=== PATIENT | female | born 1990 | race Caucasian/White ===

== ENCOUNTER 2018-01-16 17:22 | Observation (INO) | payer OTHER, BC, SELFPAY ==
[2018-01-16 17:30] VITALS: BP 133/86; PULSE 59; RESP 18; TEMP 36.8; O2SAT 95; BMI 21.2
--- NOTE | 2018-01-16 18:30 | DI.US.S_ITS ---
PROCEDURE: US PELVIC COMPLETE INDICATIONS: RIGHT LOWER QUADRANT PAIN TECHNIQUE: Real-time scanning was performed of the pelvic organs, with image documentation. Additional endovaginal scanning was necessary due to incomplete visualization of the adnexal and endometrial structures by transabdominal scanning. COMPARISON: None. FINDINGS: Transabdominal scanning: Limited scanning through the kidneys shows no hydronephrosis. No pathologic free abdominal or pelvic fluid. Endovaginal scanning: Uterus: Uterus is normal in size at 6.8 x 3.0 x 4.4 cm. The endometrium measures 4-5 mm in combined thickness. Ovaries: Right ovary measures 2.2 x 1.1 x 1.0 cm. Left ovary measures 3.2 x 1.0 x 1.1 cm. Ovaries are unremarkable, normal waveform seen with Doppler interrogation of the left ovary, however Doppler interrogation of the right ovary was unsuccessful due to adjacent peristalsing bowel The appendix is not seen. IMPRESSION: Overall, grossly unremarkable examination as above. The appendix is not seen sonographically therefore please correlate clinically and with laboratory data. Dictated by: Troy Haas M.D. on 01/16/2018 at 20:11 Approved by: Troy Haas M.D. on 01/16/2018 at 20:13
[2018-01-16] MEDS: SODIUM CHLORIDE 0.9% 1,000 ML 1000 ML IV ×2 (19:03→22:02)
[2018-01-16] MEDS: HYDROMORPHONE 1 MG INJ 0.5 MG IV (19:03)
[2018-01-16] MEDS: ONDANSETRON 4 MG/2 ML INJ IV (19:04)
[2018-01-16 19:08] LABS: Add Manual Diff / Slide Review NO; Basophils Percent Auto 0.4 % (0-2); Eosinophils Percent Auto 1.8 % (2-4); Hematocrit 38.2 % (36-46); Mean Corpuscular Hemoglobin 28.6 PG (26-34); Mean Corpuscular Volume 84.1 fL (80-100); Monocytes Percent Auto 9.6 % (3-14); Neutrophils Absolute Auto 3800 /uL (3000-5900); Neutrophils Percent Auto 59.2 % (50-75); Platelet Count 230 X10^3/uL (150-400); Red Blood Cell Count 4.54 X10^6/uL (4.0-5.2); Red Cell Distribution Width 12.8 % (11.6-14.8); White Blood Cell Count 6.5 X10^3/uL (4.5-11.0)
[2018-01-16 19:18] LABS: Alanine Aminotransferase 21 IU/L (9-52); Albumin 4.2 g/dL (3.5-5.0); Albumin Globulin Ratio 1.5 (1.0-2.8); Alkaline Phosphatase 55 U/L (38-126); Aspartate Aminotransferase 18 IU/L (14-36); BUN Creatinine Ratio 8.3 (6-22); Bilirubin Total 0.2 mg/dL (0.2-1.3); Blood Urea Nitrogen 5 mg/dL (7-17); Carbon Dioxide 24 mmol/L (22-32); Chloride 104 mmol/L (98-107); Estimated Glomerular Filt Rate > 60.0 mL/min (>60); Globulin 2.8 g/dL (1.7-4.1); Glucose 84 mg/dL (70-100); HEMOLYSIS < 15 (0-50); Lipase 52 U/L (23-300); Potassium 3.6 mmol/L (3.4-5.1); Sodium 142 mmol/L (137-145)
--- NOTE | 2018-01-16 19:45 | DI.CT.S_ITS ---
PROCEDURE: CT ABDOMEN PELVIS W CON INDICATIONS: severe RLQ pain, normal US TECHNIQUE: After the administration of intravenous contrast, 5 mm thick sections acquired from the diaphragm to the symphysis. 5 mm coronal and sagittal reformats were acquired. For radiation dose reduction, the following was used: automated exposure control, adjustment of mA and/or kV according to patient size. COMPARISON: None. FINDINGS: Image quality: Excellent. ABDOMEN: Lung bases: Lung bases are clear. Heart size is normal. Solid organs: Liver is normal in size and enhancement. Gallbladder grossly unremarkable. Biliary system is non dilated. Pancreas enhances normally. Spleen is normal in size and enhancement. No adrenal nodules. Kidneys demonstrate normal size and enhancement, without hydronephrosis. Peritoneum and bowel: The appendix is not well-visualized although probably normal in diameter coronal image 13 series 3, however there is long segment cecal and ascending colonic wall thickening in keeping with nonspecific colitis. There is adjacent fat stranding and enlarged right lower quadrant lymph nodes. No abscess. No free fluid or air. Nodes and vessels: No retroperitoneal or mesenteric adenopathy by size criteria. Aorta and inferior vena cava are normal in size. Miscellaneous: No ventral hernias. PELVIS: Genitourinary: Bladder wall thickness is normal. Miscellaneous: No inguinal hernias or adenopathy. Bones: No suspicious bony lesions. No vertebral body compression fractures. IMPRESSION: Severe ascending/right colitis, statistically infectious or inflammatory in nature. Appendix not well-visualized. The distribution of colonic wall thickening and inflammation suggest primary colitis rather than reactive changes to occult appendicitis. Please correlate clinically and with laboratory data. Dictated by: Troy Haas M.D. on 01/16/2018 at 20:19 Approved by: Troy Haas M.D. on 01/16/2018 at 20:29
[2018-01-16] MEDS: HYDROMORPHONE 1 MG INJ IV (20:07)
[2018-01-16 20:18] VITALS: BP 113/68; PULSE 81; RESP 14; O2SAT 97
[2018-01-16 21:00] VITALS: BP 143/90
[2018-01-16] MEDS: ONDANSETRON 4 MG ODT PREPACK 1 BOTTLE MISC (21:04)
[2018-01-16] MEDS: METOCLOPRAMIDE 10 MG/2 ML INJ IV (21:49)
[2018-01-16 22:00] VITALS: BP 154/100; PULSE 93; RESP 14; O2SAT 96
[2018-01-16 22:30] VITALS: BP 119/86
[2018-01-16] MEDS: levoFLOXacin 500 MG/100 ML PIGGYBACK 100 MG IV (22:36)
--- NOTE | 2018-01-16 22:47 | PC.NURSE ---
while trying to give oral antibiotics patient felt nausea and vomited several times. patient not able to take oral antibiotics and took one of her zofran odt from [facility]. zofran did not help and patient continued to vomit/dry heave. patient given reglan 10mg and has had 2 episodes of vomiting and dry heaving. provider aware.
[2018-01-16 23:57] VITALS: BP 95/59; PULSE 69; RESP 16; O2SAT 100
[2018-01-17] VITALS: BP 101/68; PULSE 75; RESP 16; TEMP 36.9; O2SAT 99
[2018-01-17 00:14] VITALS: BMI 21.2
[2018-01-17 00:49] VITALS: BP 143/73; PULSE 84; RESP 16; TEMP 36.8; O2SAT 98
[2018-01-17 02:12] VITALS: BP 98/52; PULSE 60; RESP 16; TEMP 36.7; O2SAT 97
--- NOTE | 2018-01-17 02:25 | ED_ITS ---
HPI - Abdominal Pain General Chief Complaint: Abdominal Pain Stated Complaint: STABBING PAIN IN STOMACH Time Seen by Provider: 01/16/18 18:00 Source: patient and family Mode of arrival: ambulatory Limitations: no limitations History of Present Illness HPI narrative: 27-year-old nonsmoking female, otherwise healthy, presents to the emergency department with her significant other and a chief complaint of a few days of worsening right lower quadrant pain along with nausea, vomiting and diarrhea. She states her pain started off and was generally located around her umbilicus but has since settled in the right lower quadrant. Her pain is worse with motion and improves with rest. She denies fever or chills. She recently returned from [place]. She denies any recent antibiotic use. She has had decreased appetite. She denies any vaginal bleeding or discharge MD complaint: abdominal pain Onset (ago): day(s) Pain Consistency: constant Location: RLQ Context: foreign travel Associated symptoms: nausea, vomiting and diarrhea Related Data Home Medications Medication Instructions Recorded Confirmed norgestimate-ethinyl estradiol 01/17/18 [Estarylla] Previous Rx's Medication Instructions Recorded ondansetron [Zofran ODT] 4 mg SUBLINGUAL Q6HP PRN #20 odt 07/30/16 ondansetron [Zofran ODT] 4 mg PO Q6-8H PRN #14 tab 01/16/18 Allergies Allergy/AdvReac Type Severity Reaction Status Date / Time Penicillins [PENICILLINS] Allergy Severe Swelling Verified 01/16/18 17:35 of Lip/Tongue/Throat Review of Systems Review of Systems All systems reviewed & are unremarkable except as noted in HPI and below Constitutional Denies chills, Denies fever(s), Denies lethargy and Denies weakness Eyes Denies change in vision, Denies eye discharge, Denies irritation and Denies loss of vision ENT Ears, Nose, Mouth, and Throat: Denies change in voice, Denies neck pain and Denies sore throat Cardiovascular Denies chest pain, Denies irregular heart rhythm, Denies lightheadedness, Denies palpitations, Denies dyspnea, Denies dyspnea on exertion and Denies orthopnea Respiratory Denies cough, Denies dyspnea, Denies dyspnea on exertion and Denies wheezing Gastrointestinal Gastrointestinal: Reports abdominal pain, Denies change in bowel habits, Reports diarrhea, Reports nausea and Denies vomiting Genitourinary Denies hematuria, Denies flank pain, Denies urinary incontinence and Denies urinary urgency Musculoskeletal Denies neck pain Integumentary/Breasts Denies pruritus, Denies erythema, Denies rash and Denies wounds Neurologic Denies confusion, Denies loss of vision and Denies weakness Psychiatric Denies anxiety, Denies confusion, Denies depression, Denies homicidal ideation and Denies suicidal ideation Endocrine Denies palpitations Hematologic/Lymphatic Denies easy bruising Allergic/Immunologic Denies wheezing [facility] Social History household members: significant other Smoking Status: Never smoker Exam Narrative Exam Narrative: GENERAL: This is a well-nourished, well-developed patient, in mild distress. Clutching her lower abdomen HEAD: Atraumatic. Normocephalic. No temporal or scalp tenderness. EYES: Pupils equal round and reactive. Extraocular motions intact. No scleral icterus. No injection or drainage. ENT: Nose without bleeding, purulent drainage or septal hematoma. Throat without erythema, tonsillar hypertrophy or exudate. Uvula midline. Airway patent. NECK: Trachea midline. No JVD or lymphadenopathy. Supple, nontender, no meningeal signs. CARDIOVASCULAR: Regular rate and rhythm without murmurs, gallops, or rubs. RESPIRATORY: Clear to auscultation. Breath sounds equal bilaterally. No wheezes , rales, or rhonchi. GASTROINTESTINAL: Abdomen soft, tender in the right lower quadrant, nondistended. No hepato-splenomegaly, or palpable masses. No guarding. No obturator, psoas or Rovsing's EXTREMITIES: No clubbing, cyanosis, or edema. No joint tenderness, effusion, or edema noted. BACK: Nontender without deformity or crepitance. No flank tenderness. NEURO: AOx3. SKIN: No rash or erythema. Initial Vital Signs Initial Vital Signs: Vital Signs Temperature 98.2 F 01/16/18 17:30 Pulse Rate 59 L 01/16/18 17:30 Respiratory Rate 18 01/16/18 17:30 Blood Pressure 133/86 01/16/18 17:30 Pulse Oximetry 95 01/16/18 17:30 Course Orders Ordered: ED Orders 01/16/18 18:30 US pelvic complete Stat GI Panel Stat 01/16/18 18:55 Complete Blood Count AUTO DIFF Stat Comprehensive Metabolic Panel Stat Lipase Stat 01/16/18 19:45 CT abdomen pelvis w con Stat 01/17/18 06:00 Basic Metabolic Panel Routine Complete Blood Count AUTO DIFF Routine Magnesium Routine Acetaminophen (Tylenol) 650 mg PO Q6HR PRN PRN Reason: As Needed for Fever/Mild Pain Enoxaparin Sodium (Lovenox) 40 mg SUBCUT DAILY NANI Dextrose/Sodium Chloride (Dextrose 5%-0.45% Ns) 1,000 mls @ 75 mls/hr IV CONT NANI Discontinued Medications Hydrocodone Bitart/Acetaminophen (Vicodin Prepack) 1 bottle MISC SEEINSTR ONE Stop: 01/16/18 20:34 Last Admin: 01/16/18 23:00 Dose: Hydromorphone HCl (Dilaudid) 0.5 mg IV NOW ONE Stop: 01/16/18 18:30 Last Admin: 01/16/18 19:03 Dose: 0.5 mg Hydromorphone HCl (Dilaudid) 1 mg IV NOW ONE Stop: 01/16/18 19:45 Last Admin: 01/16/18 20:07 Dose: 1 mg Sodium Chloride (Normal Saline 0.9%) 1,000 mls @ 1,000 mls/hr IV BOLUS ONE Stop: 01/16/18 19:28 Last Infusion: 01/16/18 20:46 Dose: 0 mls/hr Admin: 01/16/18 19:03 Dose: 1,000 mls/hr Sodium Chloride (Normal Saline 0.9%) 1,000 mls @ 1,000 mls/hr IV BOLUS ONE Stop: 01/16/18 23:00 Last Infusion: 01/17/18 00:00 Dose: 0 mls/hr Admin: 01/16/18 22:02 Dose: 1,000 mls/hr Levofloxacin (Levaquin) 500 mg in 100 mls @ 100 mls/hr IV NOW ONE Stop: 01/16/18 23:26 Last Infusion: 01/16/18 23:55 Dose: 0 mls/hr Admin: 01/16/18 22:36 Dose: 100 mls/hr Levofloxacin (Levaquin) 500 mg PO NOW ONE Stop: 01/16/18 20:34 Last Admin: 01/16/18 23:02 Dose: Metoclopramide HCl (Reglan) 10 mg IV NOW ONE Stop: 01/16/18 21:49 Last Admin: 01/16/18 21:49 Dose: 10 mg Metronidazole (Metronidazole) 500 mg PO NOW ONE Stop: 01/16/18 20:34 Last Admin: 01/16/18 23:03 Dose: Ondansetron HCl (Zofran) 4 mg IV NOW ONE Stop: 01/16/18 18:30 Last Admin: 01/16/18 19:04 Dose: 4 mg Ondansetron HCl (Zofran Odt Prepack) 1 bottle MISC SEEINSTR ONE Stop: 01/16/18 20:34 Last Admin: 01/16/18 21:04 Dose: 1 bottle Reevaluation(s) Reevaluation #1: Patient continues to vomit despite multiple doses antiemetics including Zofran and Reglan. Consultations Consultation #1: hospitalist happy to accept patient Vital Signs - 8 hr 01/16/18 20:18 01/16/18 21:00 01/16/18 22:00 Temperature Pulse Rate 81 93 H Respiratory Rate 14 14 Blood Pressure Blood Pressure [Right Arm] 113/68 143/90 H 154/100 H Pulse Oximetry 97 96 01/16/18 22:30 01/16/18 23:57 01/17/18 00:00 Temperature 98.4 F Pulse Rate 69 75 Respiratory Rate 16 16 Blood Pressure Blood Pressure [Right Arm] 119/86 95/59 L 101/68 Pulse Oximetry 100 99 01/17/18 00:49 Temperature 98.2 F Pulse Rate 84 Respiratory Rate 16 Blood Pressure 143/73 H Blood Pressure [Right Arm] Pulse Oximetry 98 MDM - Abdominal Pain Differential Diagnosis Differential diagnosis: Likely abdominal pain, acute appendicitis, calculus of kidney, diverticulitis and small bowel obstruction Medical Records Attestation: I reviewed the patient's medical records. Lab Data Attestation: I reviewed the patient's lab results. Result diagrams: 01/16/18 18:55 01/16/18 18:55 Lab Results 01/16/18 01/16/18 Range/Units 18:55 18:55 WBC 6.5 (4.5-11.0) X10^3/uL RBC 4.54 (4.0-5.2) X10^6/uL Hgb 13.0 (12.0-16.0) g/dL Hct 38.2 (36-46) % MCV 84.1 (80-100) fL MCH 28.6 (26-34) PG MCHC 34.0 (30-36) % RDW 12.8 (11.6-14.8) % Plt Count 230 (150-400) X10^3/uL Neut % (Auto) 59.2 (50-75) % Lymph % (Auto) 29.0 (25-40) % [place] % (Auto) 9.6 (3-14) % Eos % (Auto) 1.8 L (2-4) % Baso % (Auto) 0.4 (0-2) % Neut # (Auto) 3800 (7847-3132) /uL Sodium 142 (137-145) mmol/L Potassium 3.6 (3.4-5.1) mmol/L Chloride 104 (98-107) mmol/L Carbon Dioxide 24 (22-32) mmol/L BUN 5 L (7-17) mg/dL Creatinine 0.60 (0.52-1.04) mg/dL Estimated GFR > 60.0 (>60) mL/min BUN/Creatinine Ratio 8.3 (6-22) Glucose 84 (70-100) mg/dL Calcium 9.0 (8.4-10.2) mg/dL Total Bilirubin 0.2 (0.2-1.3) mg/dL AST 18 (14-36) IU/L ALT 21 (9-52) IU/L Alkaline Phosphatase 55 (38-126) U/L Total Protein 7.0 (6.3-8.2) g/dL Albumin 4.2 (3.5-5.0) g/dL Globulin 2.8 (1.7-4.1) g/dL Albumin/Globulin Ratio 1.5 (1.0-2.8) Lipase 52 (23-300) U/L Point of care testing: Point of Care Testing Test Results Negative Urine Dip Bedside Urine Glucose Negative Bedside Urine Bilirubin - Negative Bedside Urine Ketone - Negative Urine Specific [place] 1.015 Bedside Urine Occult Blood - Negative Bedside Urine pH 6.0 Bedside Urine Protein - Negative Bedside Urine Urobilinogen - Negative Bedside Urine Nitrite - Negative Bedside Urine Leukocytes - Negative Esterase Imaging Data CT scan - abdomen: Radiologist's impression: Patient: Aisha Mcgill RaLuiR#: [id number] : 1990Acct:[id number] Age/Sex: 27 / FDate of Service: 01/16/18 Loc: ED Accession Number: [id number] Procedure: CT abdomen pelvis w con Ordering Provider: Rigoberto Carney D.O. PROCEDURE: CT ABDOMEN PELVIS W CON INDICATIONS: severe RLQ pain, normal US TECHNIQUE: After the administration of intravenous contrast, 5 mm thick sections acquired from the diaphragm to the symphysis. 5 mm coronal and sagittal reformats were acquired. For radiation dose reduction, the following was used: automated exposure control, adjustment of mA and/or kV according to patient size. COMPARISON: None. FINDINGS: Image quality: Excellent. ABDOMEN: Lung bases: Lung bases are clear. Heart size is normal. Solid organs: Liver is normal in size and enhancement. Gallbladder grossly unremarkable. Biliary system is non dilated. Pancreas enhances normally. Spleen is normal in size and enhancement. No adrenal nodules. Kidneys demonstrate normal size and enhancement, without hydronephrosis. Peritoneum and bowel: The appendix is not well-visualized although probably normal in diameter coronal image 13 series 3, however there is long segment cecal and ascending colonic wall thickening in keeping with nonspecific colitis. There is adjacent fat stranding and enlarged right lower quadrant lymph nodes. No abscess. No free fluid or air. Nodes and vessels: No retroperitoneal or mesenteric adenopathy by size criteria. Aorta and inferior vena cava are normal in size. Miscellaneous: No ventral hernias. PELVIS: Genitourinary: Bladder wall thickness is normal. Miscellaneous: No inguinal hernias or adenopathy. Bones: No suspicious bony lesions. No vertebral body compression fractures. IMPRESSION: Severe ascending/right colitis, statistically infectious or inflammatory in nature. Appendix not well-visualized. The distribution of colonic wall thickening and inflammation suggest primary colitis rather than reactive changes to occult appendicitis. Please correlate clinically and with laboratory data. Dictated by: Troy Haas M.D. on 01/16/2018 at 20:19 MDM Narrative Medical decision making narrative: Otherwise healthy 27-year-old female with severe right lower quadrant pain and severe ascending colitis noted on CT. She has been given antibiotics, fluids and antiemetics. She is not tolerating anything by mouth despite multiple antiemetics and is therefore not a candidate for discharge. She will require admission for IV fluid administration, antibiotics, antiemetics. Discharge Plan Departure Patient Disposition: Admitted As Inpatient Clinical Impression: Colitis Discharge Date/Time: 01/17/18 00:34 Interventions: ED Discharge Assessment Last Done: 01/17/18 00:33 Admit Date/Time: 01/16/18 23:48 Admit Provider: Italo Jean
[2018-01-17] MEDS: metroNIDAZOLE 500 MG/100 ML PIGGYBACK 100 MG IV ×2 (02:56→09:37)
[2018-01-17] MEDS: DEXTROSE 5%-0.45% NS 1,000 ML 75 ML IV (02:57)
--- NOTE | 2018-01-17 03:06 | PC.NURSE ---
Admitted as AxOx3, VSS, very pleasant. SBP appears to increase quite high from baseline when patient is retching/ in distress. Once she settles down, her SBP is usually right under 100. Upon coming up to the floor patient started retching and dry heaving but did not throw up. She stated that her nausea/vomitting had gone away finally for a bit up until that point. Currently patient is not nauseous. She is on Clear Liquids but at this point does not have a desire to try to eat/drink. She is hooked up to continuous IVF: D5-1/2NS@75mL/hr. Awaiting Stool sample to send. Independent of ADL's. Refused SCD's, I explained to her risks for blood clots/strokes and she verbalized understanding and refused. States her only home meds she takes is control.
--- NOTE | 2018-01-17 05:33 | PM.HP.1 ---
History of Present Illness Date Patient Seen: 01/17/18 Time Patient Seen: 05:34 Chief complaint: STABBING PAIN IN STOMACH Narrative: The patient is a 27-year-old female with unremarkable past medical history. Patient presents of concern for 5 day history of abdominal pain. Abdominal discomfort localized to right lower quadrant. Associated symptoms include nausea and vomiting (started 01/16). She has been having the diarrhea for the past 4 days. Reports generalized malaise. Appetite and oral food and fluid intake has been diminished. Abdominal pain is localized to umbilical area and right lower quadrant. Does not radiate to the back, shoulder, or extremities. Pain is exacerbated with activity and partially relieved with rest. Denies fever and chills. No known GI disorders / inflammatory conditions. Denies blood per rectum. Recently traveled to [place], returned 01/14. Denies recent ABX use. Patient does not smoke or use recreational drugs. Reports mild alcohol use. Denies abdominal trauma. ED w/u consisted of a pelvic ultrasound and CT imaging pelvic ultrasound is noted as grossly unremarkable. CT of A/P revealed severe ascending right colitis, statistically infectious or inflammatory nature. Appendix not well visualized. The distribution of colonic wall thickening and inflammation suggest primary colitis rather than reactive changes to occult appendicitis. Patient History Family & Social History Family History: Reviewed 01/17/18 by HENRI Childers Social History: household members significant other Prior Living Arrangements House Safety & Behavioral: Feels Safe in Current Yes Environment Been Physically Hurt or No Threatened By a Person Suicidal Ideation Description None Suicide Plan Description No Plan Tobacco & Substance use: Smoking Status Never smoker alcohol intake frequency 0-2 drinks per day Substance Use Type does not use Meds Home Medications Medication Instructions Recorded Confirmed Type ondansetron [Zofran ODT] 4 mg SUBLINGUAL Q6HP PRN #20 odt 07/30/16 01/17/18 Rx ondansetron [Zofran ODT] 4 mg PO Q6-8H PRN #14 tab 01/16/18 01/17/18 Rx norgestimate-ethinyl estradiol 0.25 - 35 DAILY 01/17/18 History [Estarylla] Allergies Allergy/AdvReac Type Severity Reaction Status Date / Time Penicillins [PENICILLINS] Allergy Severe Swelling Verified 01/16/18 17:35 of Lip/Tongue/Throat Review of Systems Review of Systems All systems reviewed & are unremarkable except as noted in HPI and below Exam Vital Signs (past 8 hours): - 01/16/18 22:00 01/16/18 22:30 01/16/18 23:57 Temperature Pulse Rate 93 H 69 Respiratory Rate 14 16 Blood Pressure Blood Pressure [Right Arm] 154/100 H 119/86 95/59 L Pulse Oximetry 96 100 01/17/18 00:00 01/17/18 00:49 01/17/18 02:12 Temperature 98.4 F 98.2 F 98.1 F Pulse Rate 75 84 60 Respiratory Rate 16 16 16 Blood Pressure 143/73 H 98/52 L Blood Pressure [Right Arm] 101/68 Pulse Oximetry 99 98 97 Oxygen Delivery Method Room Air Narrative Exam Narrative: General appearance: NAD Head: NC / AT EENT: ELISABET, EOMI, external ears intact, external nose normal without drainage or epistaxis, dry MM Neck: No lymphadenopathy or JVD Respiratory: Equal chest rise, CTAB, no tachypnea or dyspnea, on room air Cardiovascular: S1-S2, no murmur Peripheral vascular: No edema or cyanosis, bi-pedal pulses palpable GI: soft, nondistended, tender in the right lower quadrant and mildly in right upper quadrant; hyperactive bowel sounds; no organomegaly : No suprapubic tenderness Skin: Warm, intact, no suspicious lesions or bruising Neuro: No focal neurological deficit Psych: AOx3, normal mood and affect Objective Labs Result Diagrams: 01/16/18 18:55 01/16/18 18:55 Labs: Laboratory Results - last 24 hr 01/16/18 01/16/18 18:55 18:55 WBC 6.5 RBC 4.54 Hgb 13.0 Hct 38.2 MCV 84.1 MCH 28.6 MCHC 34.0 RDW 12.8 Plt Count 230 Neut % (Auto) 59.2 Lymph % (Auto) 29.0 [place] % (Auto) 9.6 Eos % (Auto) 1.8 L Baso % (Auto) 0.4 Neut # (Auto) 3800 Sodium 142 Potassium 3.6 Chloride 104 Carbon Dioxide 24 BUN 5 L Creatinine 0.60 Estimated GFR > 60.0 BUN/Creatinine Ratio 8.3 Glucose 84 Calcium 9.0 Total Bilirubin 0.2 AST 18 ALT 21 Alkaline Phosphatase 55 Total Protein 7.0 Albumin 4.2 Globulin 2.8 Albumin/Globulin Ratio 1.5 Lipase 52 Assessment & Plan Plan: Assessment/Plan Narrative: Colitis, severe Infectious versus inflammatory. WBC within normal limits. - IV Flagyl and levofloxacin - GI panel pending - IVF - Supportive care: anti-emetics, pain control Hypovolemia 2/2 acute GI losses and poor nutritional intake - IVF Intractable nausea and vomiting - Reglan prn Diarrhea - IVF - Replete e-lyte deficiencies
[2018-01-17 06:42] LABS: Add Manual Diff / Slide Review NO; Basophils Percent Auto 0.2 % (0-2); Eosinophils Percent Auto 0.1 % (2-4); Hematocrit 33.8 % (36-46); Hemoglobin 11.5 g/dL (12.0-16.0); Lymphocytes Percent Auto 17.9 % (25-40); Mean Corpuscular HGB Conc 33.9 % (30-36); Mean Corpuscular Hemoglobin 28.7 PG (26-34); Mean Corpuscular Volume 84.5 fL (80-100); Monocytes Percent Auto 7.3 % (3-14); Neutrophils Absolute Auto 4800 /uL (3000-5900); Neutrophils Percent Auto 74.5 % (50-75); Platelet Count 203 X10^3/uL (150-400); Red Cell Distribution Width 12.6 % (11.6-14.8); White Blood Cell Count 6.5 X10^3/uL (4.5-11.0)
[2018-01-17 07:00] LABS: Blood Urea Nitrogen 3 mg/dL (7-17); Calcium 7.9 mg/dL (8.4-10.2); Carbon Dioxide 22 mmol/L (22-32); Chloride 104 mmol/L (98-107); Estimated Glomerular Filt Rate > 60.0 mL/min (>60); Glucose 106 mg/dL (70-100); HEMOLYSIS < 15 (0-50); Magnesium 1.8 mg/dL (1.6-2.3); Potassium 3.7 mmol/L (3.4-5.1); Sodium 136 mmol/L (137-145)
[2018-01-17 08:00] VITALS: BP 92/71; PULSE 62; RESP 17; TEMP 36.8; O2SAT 97
[2018-01-17] MEDS: ACETAMINOPHEN 325 MG TABLET 650 MG PO (08:27)
--- NOTE | 2018-01-17 11:15 | CM.DANOTE ---
DCP/Continued: Reviewed chart. Patient is a 27yr old female admitted to [facility] with abdominal pain. Primary payor is 1[facility]. Patient without PCP at this time. Met with patient explained CM/SW role. Patient alert and oriented resting in bed comfortably at time of visit. Patient reports that she is completely I in ADL's. Patient resides with significant other (Parish) # [phone] and plans to return home when medically stable. Patient reports that she is actively looking for PCP. Patient has a few names that were given to her by friend and plans to follow up as outpatient. Patient employed in [employer] as [employer]. Patient denies h/o abdominal pain and any d/c planning needs. P: Anticipate home when medically stable. MON[facility] Th[facility] Discharge Planning/Care Management CM Discharge Assessment Start: 01/17/18 11:14 Freq: Status: Active Protocol: Document 01/17/18 11:14 KJS (Rec: 01/17/18 11:15 [id number]) Discharge Planning Assessment Assigned Payroll Benefits Administrator MONSTER Thapa Advance Directives? No History Provided By Patient Has Patient been admitted in last 30 No days? Prior Living Arrangements House Household Members significant other Type of transporation used prior to Drives own vehicle admit Independent with ADL's Yes Is patient alert and oriented? Yes Caregiver for Another No Barriers to Discharge No Discharge Plan Home Referrals Initiated None needed Whiteboard Updated in Patient Room with Yes name and ext. # of Payroll Benefits Administrator Review Status In Process Please Provide Date Initial DC 01/17/18 Assessment Was Performed Next Review Type Continued Stay Review
[2018-01-17 11:50] VITALS: BP 92/58; PULSE 65; RESP 17; TEMP 37.2; O2SAT 97
--- NOTE | 2018-01-17 14:51 | PC.NURSE ---
Day shift: Pt left unit at approx 1500. She is with SO and ambulated to private car. Has all personal belongings. Paperwork is signed and all questions answered. Dr Hensley called in scripts.
--- NOTE | 2018-01-17 19:36 | P.DS_ITS ---
History of Present Illness Chief complaint: STABBING PAIN IN STOMACH Narrative: The patient is a 27-year-old female with unremarkable past medical history. Patient presents of concern for 5 day history of abdominal pain. Abdominal discomfort localized to right lower quadrant. Associated symptoms include nausea and vomiting (started 01/16). She has been having the diarrhea for the past 4 days. Reports generalized malaise. Appetite and oral food and fluid intake has been diminished. Abdominal pain is localized to umbilical area and right lower quadrant. Does not radiate to the back, shoulder, or extremities. Pain is exacerbated with activity and partially relieved with rest. Denies fever and chills. No known GI disorders / inflammatory conditions. Denies blood per rectum. Recently traveled to [place] , returned 01/14. Denies recent ABX use. Patient does not smoke or use recreational drugs. Reports mild alcohol use. Denies abdominal trauma. ED w/u consisted of a pelvic ultrasound and CT imaging pelvic ultrasound is noted as grossly unremarkable. CT of A/P revealed severe ascending right colitis, statistically infectious or inflammatory nature. Appendix not well visualized. The distribution of colonic wall thickening and inflammation suggest primary colitis rather than reactive changes to occult appendicitis. Discharge Providers Date of admission: 01/16/18 23:48 Discharge provider: Levi Hensley MD Discharge Date: 01/17/18 Summary Discharge Diagnosis: 1. Acute infectious colitis Hospital Course: Patient was started on IV Levaquin and Flagyl and IV hydration. She had significant improvement in abdominal pain and resolution of diarrhea and vomiting over night and feels ready to discharge. At time of discharge she is tolerating a clear liquid diet. Acute colitis most likely infectious associated with recent travel to [place]. She would like to establish care locally at [facility]. Status at Discharge Functional status at discharge: independent ambulation Overall status at discharge: patient is back to baseline Time Spent with Patient Less than 30 minutes Exam Vital Signs (past 8 hours): - 01/17/18 11:50 Temperature 99.0 F Pulse Rate 65 Respiratory Rate 17 Blood Pressure 92/58 L Pulse Oximetry 97 Oxygen Delivery Method Room Air Objective Labs Result Diagrams: 01/17/18 05:53 01/17/18 05:53 Labs: Laboratory Results - last 24 hr 01/17/18 01/17/18 05:53 05:53 WBC 6.5 RBC 4.00 Hgb 11.5 L Hct 33.8 L MCV 84.5 MCH 28.7 MCHC 33.9 RDW 12.6 Plt Count 203 Neut % (Auto) 74.5 Lymph % (Auto) 17.9 L [place] % (Auto) 7.3 Eos % (Auto) 0.1 L Baso % (Auto) 0.2 Neut # (Auto) 4800 Sodium 136 L Potassium 3.7 Chloride 104 Carbon Dioxide 22 BUN 3 L Creatinine 0.50 L Estimated GFR > 60.0 BUN/Creatinine Ratio 6.0 Glucose 106 H Calcium 7.9 L Magnesium 1.8 Discharge Plan Discharge Plan Patient Disposition: Home Discharge Med Rec/Prescriptions Prescriptions: New metronidazole 500 mg tablet 500 mg PO TID Qty: 15 RF: 0 levofloxacin 500 mg tablet 500 mg PO .hs Qty: 5 RF: 0 fluconazole 150 mg tablet 150 mg PO DAILY 1 Days Qty: 1 RF: 0 ondansetron HCl 4 mg tablet 4 mg PO TID PRN (Reason: nausea and vomiting) 5 Days Qty: 10 RF: 0 Continue norgestimate-ethinyl estradiol [Estarylla] 0.25-35 mg-mcg tablet 1 tab PO DAILY RF: 0 Follow up/Referrals: Michaela Smith PAC [Other] - 1 Week ([facility] will call patient to schedule her appointment to establish care) Provider Discharge Instructions Diet: Diet as Tolerated Visit Report/Discharge Packet Instructions: Ondansetron, Metronidazole Oral, Fluconazole, Levofloxacin, DI for Colitis Visit Report Forms: Stroke Signs & Symptoms Discharge Data Attending Provider: Italo Jean Admit Date/Time: 01/16/18 23:48 Discharges patient from system. Discharge Date/Time: 01/17/18 14:54
== END 2018-01-17 14:54 | disposition home or self-care (01) ==
LOC: ED 23:08 → AC 01-17 09:15
PROVIDERS: Admitting Provider Nurse Practitioner Gerontology; Emergency Provider Emergency Medicine; Visit Provider Nurse Practitioner Gerontology
DX: K52.9 Noninfective gastroenteritis and colitis, unspecified (principal); R10.31 Right lower quadrant pain; R11.2 Nausea with vomiting, unspecified
CPT/HCPCS: 36415; 36591; 74177; 76830; 76856; 80048; 80053; 81003; 81025; 83690; 83735; 85025; 96361; 96365; 96366; 96375; 96376; 99285; G0378; J1170; J1956; J2405; J2765; Q9967

== ENCOUNTER → 2019-10-16 09:02 | Outpatient (CLI) | payer OTHER, MEDICAID, SELFPAY ==
[2019-09-28 13:25] VITALS: BMI 21.2
--- NOTE | 2019-10-16 09:03 | DI.US.S_ITS ---
PROCEDURE: US OB <= 14 WEEKS FETUS INDICATIONS: DATES OUTSIDE/PRIOR DATING DATA: Last menstrual period (LMP): 08/19/19. LMP-based estimated date of delivery (LAUREN): 05/25/20 . First dating scan (date and location): 10/16/19 . Estimated date of delivery (LAUREN) from first dating scan: 05/25/20 . TECHNIQUE: Real-time scanning was performed of the fetus and maternal pelvic organs, with image documentation. Endovaginal scanning was also performed to better visualize the fetus and maternal ovaries. COMPARISON: None. FINDINGS: Embryo: 1.8 cm crown-rump length correlates with a gestational age of 8 weeks 2 days, +/-5 days, and heart rate at 178 beats per minute was observed. Measurement variability in dating: +/- 4 weeks by LMP, +/- 7 days by mean sac diameter (use before 6 weeks gestation if crown-rump length not able to be measured), +/- 5 days by crown-rump length (up to 8 weeks 6 days gestation), +/- 7 days by crown-rump length (up to 13 weeks 6 days gestation). Maternal organs: Ovaries appeared normal considering gestational status . Limited images through the kidneys demonstrate no hydronephrosis. IMPRESSION: Single living intrauterine gestation with estimated gestational age of 8 weeks 2 days and delivery date projected to be centered on 05/25/20, +/-5 days. Dictated by: Pedro Pablo Garrison M.D. on 10/16/2019 at 10:50 Approved by: Pedro Pablo Garrison M.D. on 10/16/2019 at 10:52
== END ==
PROVIDERS: PCP Family Medicine; Referring Provider Family Medicine; Visit Provider Family Medicine
DX: Z34.91 Encounter for supervision of normal pregnancy, unspecified, first trimester (principal); Z3A.08 8 weeks gestation of pregnancy
CPT/HCPCS: 76801; 76817

== ENCOUNTER → 2019-10-23 14:57 | Outpatient (CLI) | payer OTHER, MEDICAID, SELFPAY ==
[2019-09-28 13:25] VITALS: BMI 21.2
[2019-10-25 13:44] LABS: Urine N gonorrhoeae NOT DETECTED
[2019-10-25 13:45] LABS: Urine Chlamydia NOT DETECTED
== END ==
PROVIDERS: PCP Family Medicine; Visit Provider Family Medicine
DX: Z34.90 Encounter for supervision of normal pregnancy, unspecified, unspecified trimester (principal)
CPT/HCPCS: 87491; 87591

== ENCOUNTER → 2019-10-25 16:47 | Outpatient (CLI) | payer OTHER, MEDICAID, SELFPAY ==
[2019-09-28 13:25] VITALS: BMI 21.2
[2019-10-25 17:33] LABS: Add Manual Diff / Slide Review NO; Basophils Absolute Auto 0 /uL (0-100); Basophils Percent Auto 0.4 % (0-2); Eosinophils Absolute Auto 100 /uL (0-450); Eosinophils Percent Auto 1.1 % (2-4); Hematocrit 36.6 % (36-46); Hemoglobin 12.7 g/dL (12.0-16.0); Lymphocytes Absolute Auto 2100 /uL (1100-4500); Lymphocytes Percent Auto 27.4 % (25-40); Mean Corpuscular HGB Conc 34.7 % (30-36); Mean Corpuscular Hemoglobin 28.8 PG (26-34); Mean Corpuscular Volume 83.1 fL (80-100); Monocytes Absolute Auto 500 /uL (0-900); Neutrophils Absolute Auto 4800 /uL (1500-7000); Neutrophils Percent Auto 64.1 % (50-75); Platelet Count 212 X10^3/uL (150-400); Red Cell Distribution Width 12.4 % (11.6-14.8); White Blood Cell Count 7.5 X10^3/uL (4.5-11.0)
[2019-10-25 17:46] LABS: Appearance Urine UA CLEAR; Bilirubin Urine UA NEGATIVE (NEGATIVE); Color Urine UA YELLOW; Glucose Urine UA NEGATIVE (Negative); Ketones Urine UA NEGATIVE (NEGATIVE); Leukocyte Esterase Urine UA 2+ (NEGATIVE); Nitrite Urine UA NEGATIVE (Negative); Occult Blood Urine UA NEGATIVE (Negative); Protein Urine UA NEGATIVE (Negative); Specific Gravity Urine UA 1.015 (1.000-1.035); Urobilinogen Urine UA 0.2 E.U./dL (0.2)
[2019-10-25 17:56] LABS: RBC Urine None Seen (0-5/HPF); pH Urine UA 5.5 (4.5-8.0)
[2019-10-25 18:16] LABS: WBC Urine 10-30/HPF (0-5/HPF)
[2019-10-25 18:17] LABS: Amorphous Sediment Urine 1+; Bacteria Urine Moderate (10-30); Squamous Epithelial Cell Urine 5-10 /HPF (0-5/HPF)
[2019-10-25 18:18] LABS: Hepatitis B Surface Antigen NEGATIVE s/c (NEGATIVE); Rubella Antibody IgG 4.4 IU/mL (>15)
[2019-10-25 18:34] LABS: HIV 1 & 2 Ab/Ag 4th Gen Combo NEGATIVE (NEGATIVE); Hep C Virus Ab w/Reflex Quant NEGATIVE s/c (NEGATIVE)
[2019-10-26 04:36] LABS: RPR Screen Non Reactive (Non Reactive)
[2019-10-26 10:10] LABS: Varicella IgG Antibody 436 index (Immune >165)
== END ==
PROVIDERS: PCP Family Medicine; Referring Provider Family Medicine; Visit Provider Family Medicine
DX: Z34.90 Encounter for supervision of normal pregnancy, unspecified, unspecified trimester (principal)
CPT/HCPCS: 36415; 80055; 81003; 81015; 86787; 86803; 86850; 86900; 86901; 87086; 87389

== ENCOUNTER → 2019-12-18 13:56 | Outpatient (CLI) | payer OTHER, MEDICAID, SELFPAY ==
[2019-09-28 13:25] VITALS: BMI 21.2
[2019-12-21 21:20] LABS: AFP, Serum 34.3 ng/mL (.); Calc Gestational Age EDD (.); Estriol, Free 0.95 ng/mL (.); Inhibin A, Dimeric 160.73 pg/mL (.); Inhibin A, MoM 0.92 (.); Maternal Ethnicity Caucasian (.); Maternal Weight 132 lbs (.); Number of Fetuses No (.); OSBR Risk 1 IN 10000 (.); Results Report (.); Test Results *Screen Negative* (.); hCG, MoM 0.61 (.); hCG, Serum 20953 mIU/mL (.)
== END ==
PROVIDERS: PCP Family Medicine; Referring Provider Family Medicine; Visit Provider Family Medicine
DX: Z34.90 Encounter for supervision of normal pregnancy, unspecified, unspecified trimester (principal); Z3A.17 17 weeks gestation of pregnancy
CPT/HCPCS: 36415; 82105; 82677; 84702; 86336

== ENCOUNTER → 2020-01-05 09:05 | Outpatient (CLI) | payer OTHER, MEDICAID, SELFPAY ==
[2019-09-28 13:25] VITALS: BMI 21.2
--- NOTE | 2020-01-05 09:05 | DI.US.S_ITS ---
PROCEDURE: US OB >= 14 WEEKS FETUS INDICATIONS: anatomy screening OUTSIDE/PRIOR DATING DATA: Last menstrual period (LMP): 08/19/2019. LMP-based estimated date of delivery (LAURNE): 05/25/2020 . First dating scan (date and location): 10/16/2019 . Estimated date of delivery (LAUREN) from first dating scan: 05/25/2020 . TECHNIQUE: Real-time scanning was performed of the fetus, with image documentation and biometric measurements. Endovaginal scanning: No COMPARISON: None. FINDINGS: General: A single living intrauterine gestation is present. Presentation: Breech. Placenta: Placental position is anterior , without previa. Amniotic fluid index: 12.4 cm, normal range is 5-24 cm. heart rate: 155 beats per minute. Maternal cervical canal: 3.5 cm long. Normal lower limit is 2.5 cm. biometrics: Biparietal diameter: 18 weeks Head circumference: 18 weeks 6 days Abdominal circumference: 18 weeks 6 days Femur length: 19 weeks 3 days Estimated gestational age from initial scan: 19 weeks 6 days. Composite gestational age from present scan: 19 weeks 6 days Estimated weight and percentile: 273 g, 12 percentile Measurement variability for biometric dating: +/- 7 days from 14 weeks to 15 weeks 6 days gestation, +/- 10 days from 16 weeks to 21 weeks 6 days gestation, +/- 2 weeks from 22 weeks to 27 weeks 6 days gestation, +/- 3 weeks for 28 weeks gestation or later. weight reference: 4500 g or EFW >90/95% is considered macrosomia or large for gestational age. EFW <10% is small for gestational age. EFW 5% or less is considered intra-uterine growth restriction. Anatomic survey: Neuro: Ventricles are non-dilated at less than 10 mm. Cisterna magna is normal at 3-11 mm. Cerebellum is normal in size and morphology. Nuchal skin fold: Normal at less than 6 mm between 14-21 weeks gestational age. Face: Nose and lips, facial profile are normal. Spine: No evidence for spina bifida. Heart: 4-chambered heart is present, with normal ventricular outflow tracts. Diaphragm: Diaphragm is intact. Stomach: Left-sided stomach is present. Kidneys: No hydronephrosis. Normal is less than 5 mm in 2nd trimester, less than 7 mm in 3rd trimester. Cord: 3-vessel cord has orthotopic insertion. Bladder: Normal in size. Extremities: All 4 extremities identified. IMPRESSION: 1. Single living IUP redemonstrated and interval growth is lower limits of normal with estimated weight at the 12th percentile. 2. Normal anatomic survey. Dictated by: Brandon CORREIA Interpreted: Tim Zamudio MD on 01/05/2020 at 10:39 Approved by: Tim Zamudio M.D. on 01/05/2020 at 11:06
== END ==
PROVIDERS: PCP Family Medicine; Referring Provider Family Medicine; Visit Provider Family Medicine
DX: Z36.89 Encounter for other specified antenatal screening (principal); Z3A.19 19 weeks gestation of pregnancy
CPT/HCPCS: 76811

== ENCOUNTER → 2020-03-01 13:14 | Outpatient (CLI) | payer OTHER, MEDICAID, SELFPAY ==
[2019-09-28 13:25] VITALS: BMI 21.2
[2020-03-01 14:41] LABS: Hematocrit 31.8 % (36-46); Hemoglobin 11.1 g/dL (12.0-16.0)
[2020-03-01 14:51] LABS: GTT (PREG) 1 Hour PP 50gm Dose 123 mg/dL (76-139)
== END ==
PROVIDERS: PCP Family Medicine; Referring Provider Family Medicine; Visit Provider Family Medicine
DX: Z34.90 Encounter for supervision of normal pregnancy, unspecified, unspecified trimester (principal); Z3A.25 25 weeks gestation of pregnancy
CPT/HCPCS: 36415; 82950; 85014; 85018

== ENCOUNTER → 2020-04-29 15:16 | Outpatient (CLI) | payer OTHER, MEDICAID, SELFPAY ==
[2019-09-28 13:25] VITALS: BMI 21.2
[2020-04-30 13:48] LABS: Strep Grp B PCR POS for Grp B Strep
== END ==
PROVIDERS: PCP Family Medicine; Visit Provider Family Medicine
DX: Z34.90 Encounter for supervision of normal pregnancy, unspecified, unspecified trimester (principal); Z3A.36 36 weeks gestation of pregnancy
CPT/HCPCS: 87081; 87186; 87653

== ENCOUNTER 2020-05-26 18:09 | Inpatient (IN) | payer OTHER, MEDICAID, SELFPAY ==
[2019-09-28 13:25] VITALS: BMI 21.2
[2020-05-26 19:08] LABS: Add Manual Diff / Slide Review NO; Basophils Absolute Auto 100 /uL (0-100); Basophils Percent Auto 0.5 % (0-2); Eosinophils Absolute Auto 400 /uL (0-450); Eosinophils Percent Auto 4.1 % (2-4); Hematocrit 34.9 % (36-46); Hemoglobin 11.9 g/dL (12.0-16.0); Lymphocytes Absolute Auto 2300 /uL (1100-4500); Lymphocytes Percent Auto 21.6 % (25-40); Mean Corpuscular Hemoglobin 28.8 PG (26-34); Mean Corpuscular Volume 84.8 fL (80-100); Monocytes Absolute Auto 900 /uL (0-900); Monocytes Percent Auto 8.3 % (3-14); Neutrophils Absolute Auto 6900 /uL (1500-7000); Neutrophils Percent Auto 65.5 % (50-75); Platelet Count 219 X10^3/uL (150-400); Red Blood Cell Count 4.12 X10^6/uL (4.0-5.2); Red Cell Distribution Width 15.3 % (11.6-14.8); White Blood Cell Count 10.5 X10^3/uL (4.5-11.0)
[2020-05-26 19:20] VITALS: BP 105/70
[2020-05-26 19:27] LABS: COVID19 -Nasal RAPID Negative (Negative)
[2020-05-26] MEDS: DINOPROSTONE VAG (CERVIDIL) 10 MG VAG (20:42)
--- NOTE | 2020-05-27 07:21 | P.HPOB_ITS ---
OB HPI Date/Time Date of admission: 05/26/20 Date Patient Seen: 05/27/20 Time Patient Seen: 07:30 History of Present Condition Chief complaint: Eval Of Labor : 1 Para: 0 Estimated Date of Delivery: 05/25/20 Estimated Gestational Age (weeks): 40w2d Narrative: Aisha Mcgill is a 29 year old female here for induction due to maternal discomfort (GERD and bilateral carpal tunnel syndrome). She presented for Cervidil last night and denies complaints this morning. Denies feeling contractions and reports good FM overnight. Indications Indication for induction OB: maternal discomfort History of Present care: good care, initiated at week # (9), number of visits (13) and pounds weight gain (40) Dating criteria: LMP confirmed by 1st trimester US Ultrasounds: normal 1st trimester US and normal mid trimester US Obstetrical complications: none Medical complications: none Preadmission Labs Blood type: A (+) positive -: Antibody screen: negative, GBS status: positive, HBsAG: negative, HIV: negative and RPR/VDLR: negative -: Chlamydia screen: not detected and Gonorrhea screen: not detected -: Rubella: not immune and Varicella: immune HCT: 34.9 HCAB: negative PAP: Normal Quad screen: Normal Urine: Lactobacillus 1 hr GTT: 123 Evaluation Evaluation Baseline heart rate: 120 Variability: Moderate (11-25) monitor accelerations: Present monitor decelerations: Absent Contraction Frequency (minutes): 4 Uterine Contraction Intensity: Mild Status: Category l Cervical dilation (cm): 3 Cervical effacement (%): 90 station: -2 Laboratory results: Laboratory Tests 05/26/20 05/26/20 05/26/20 18:50 18:58 18:58 WBC 10.5 RBC 4.12 Hgb 11.9 L Hct 34.9 L MCV 84.8 MCH 28.8 MCHC 34.0 RDW 15.3 H Plt Count 219 Neut % (Auto) 65.5 Lymph % (Auto) 21.6 L [place] % (Auto) 8.3 Eos % (Auto) 4.1 H Baso % (Auto) 0.5 Neut # (Auto) 6900 Lymph # (Auto) 2300 [place] # (Auto) 900 Eos # (Auto) 400 Baso # (Auto) 100 SARS-CoV-2 (PCR) Negative Blood Type A Positive Antibody Screen Negative [facility] Medical History Ankle fracture, left Ankle fracture, right Anxiety Infection of stomach Yeast infection of the vagina Surgical History H/O wisdom tooth extraction History of tonsillectomy and adenoidectomy Family History Mother Liver disease Father No known health problems Family estrangement Grandfather Diabetes mellitus Grandmother Myocardial infarct Grandfather Family estrangement Grandmother Brain aneurysm Lung cancer Stroke Social History marital status: unmarried,living together household members: significant other lives independently: Yes caregiver/support person: No pets and animals: No education level: high school occupational status: employed current occupational exposures/hazards: Yes 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 [employer] special pawan needs: No Smoking Status: Former smoker second hand exposure: No alcohol intake: former (pre- : very occasional) substance use type: does not use Meds Home Medications and Allergies Home Medications Medication Instructions Recorded Confirmed Type Lactobacillus cap PO 10/16/19 01/19/20 History acidophil,plantar-Bifido no.7 25 billion cell capsule prenat.vits,kory,ukw-kwoj-wzghm 1 tab PO DAILY 10/16/19 01/19/20 History fluconazole 150 mg tablet 150 mg PO DAILY #1 tab 11/20/19 01/19/20 Rx azithromycin 250 mg tablet See Rx Instructions PO .COMPLEX #6 01/23/20 Rx tab Allergies Allergy/AdvReac Type Severity Reaction Status Date / Time Penicillins [PENICILLINS] Allergy Severe Anaphylaxis Verified 01/19/20 14:52 : Swelling of Lip/Tongue/Throat Exam Vital Signs (past 8 hours): T 35.9 BP 117/73 P 80 Const General: healthy appearing and comfortable HENMT Head: normal to inspection Ears: hearing grossly normal bilaterally Nose: external nose normal Face and sinus: normal facial exam Mouth: oral mucosae normal Eyes General: appearance normal, both eyes and all related structures Neck Neck: normal visual inspection Resp Effort & Inspection: normal respiratory effort Auscultation: clear to auscultation bilaterally Cardio Rate: regular rate Rhythm: regular rhythm Heart Sounds: no murmurs GI Other: Gravid External Female Exam: normal external appearance Manual OB Exam: dilated 3, effaced (90) and station -2 Presentation: vertex Estimated Weight (lbs): 7 Back/Spine/Pelvis Back: normal to inspection Skin General: no rashes or lesions noted Extrem General: normal to inspection and no pedal edema Objective Labs Result Diagrams: 05/26/20 18:58 Labs: Laboratory Results - last 24 hr 05/26/20 05/26/20 05/26/20 18:50 18:58 18:58 WBC 10.5 RBC 4.12 Hgb 11.9 L Hct 34.9 L MCV 84.8 MCH 28.8 MCHC 34.0 RDW 15.3 H Plt Count 219 Neut % (Auto) 65.5 Lymph % (Auto) 21.6 L [place] % (Auto) 8.3 Eos % (Auto) 4.1 H Baso % (Auto) 0.5 Neut # (Auto) 6900 Lymph # (Auto) 2300 [place] # (Auto) 900 Eos # (Auto) 400 Baso # (Auto) 100 SARS-CoV-2 (PCR) Negative Blood Type A Positive Antibody Screen Negative Assessment and Plan Assessment and Plan Assessment and Plan narrative: 29 year old at 40+2 weeks gestation here for induction due to maternal discomfort. She received Cervidil overnight and Reyes score this morning is 9. GBS positive. She is severely allergic to PCN and GBS is resistant to clindamycin so will give vancomycin for GBS prophylaxis. Plan Pitocin per protocol GBS prophylaxis with vancomycin due to severe PCN allergy Epidural upon request
[2020-05-27] MEDS: OXYTOCIN PREMIX 30 UNIT/500 ML PLAST..BAG IV (10:00)
[2020-05-27] MEDS: LACTATED RINGERS 1,000 ML 100 ML IV ×2 (10:09→13:07)
[2020-05-27] MEDS: VANCOMYCIN 2,000 MG/400 ML PIGGYBACK 200 MG IV (10:09)
[2020-05-27] MEDS: diphenhydrAMINE 50 MG/ML VIAL 25 MG IV (12:07)
--- NOTE | 2020-05-27 12:36 | PM.OBPNLAB ---
Date/Time Date Patient Seen: 05/27/20 Time Patient Seen: 12:20 Pain Control Comments: Patient is feeling more uncomfortable and wants an epidural. About an hour into her first dose of vancomycin she developed redness and itching on her chest and upper back. Denies dizziness, SOB or chest pressure. Pelvic Exam Dilation (cm): 5 Effacement (%): 100 station: -1 Amniotic membrane status: Intact Contractions Pitocin rate (mU/min): 6 Contraction frequency (min): 3 Contraction pattern: Regular Contraction intensity: Strong/Firm Status status: Category l Heart Rate Baseline: 130 Monitor Accelerations: Present Monitor Decelerations: Early Monitor Variability: Moderate Assessment and Plan Assessment: active labor Comments: Epidural now. Discussed mild reaction to vancomyin. Symptoms improved quickly with IV benadryl. Next dose not due for 10 hours. If still in 10 hours, will plan to run at half the rate and premedicate with benadryl. The next dose is 1 g instead of 2 g as well.
[2020-05-27] MEDS: CALCIUM CARBONATE 500 MG TAB 1000 MG PO (13:08)
[2020-05-27] MEDS: FENT 2MCG/ML BUPIV 0.125% EPI 200 MCG/100 ML PLAST..BAG 12 MCG EPIDURAL (13:15)
--- NOTE | 2020-05-27 18:47 | P.PCNOB_ITS ---
Labor & Delivery Delivery date: 05/27/20 Cervical ripening method: per Cervidil protocol Induction method: per pitocin protocol Delivery augmentation: pitocin Delivery monitor: external FHT Route of delivery: L&D Laceration Description: Vaginal - 1st Degree and Labial (superficial bilateral) Delivery repair: vicryl Estimated blood loss (mL): 100 Anesthesia Type: Epidural Narrative: VAGINAL DELIVERY NOTE BRIEF HISTORY: Patient is a 29-year-old at 40 weeks and 2 days gestation who gave on 05/27/2010 at 18:29. LAUREN: 05/25/2020 Hospital problems: 40 weeks of GBS positive Maternal discomfort STAGE I: Labor Patient received Cervidil overnight followed by pitocin per protocol. Active labor began at 10:00 AM shortly after initiation of pitocin. Spontaneous rupture of membranes occurred sometime after 12:40 PM though was not entirely clear due to lack of a gush or persistent leaking of fluid. She received an epidural with excellent pain control. FHT were category 1 and 2 throughout stage 1 due to periods of late decelerations which responded to resuscitation with fluids or position change. She was completely dilated at 3:07 PM. Stage 1 duration 5 hours and 7 minutes. STAGE II: Delivery Patient was complete at 3:07 PM but labored down for an hour due to lack of urge to push. She pushed for 2 hours and went on to delivery a vigorous male infant at 6:29 PM. was vertex and direct OA. He was immediately placed on mother's abdomen. Cord was clamped and cut after 2 minute delay. Apgars were 8 and 9 at one and five minutes respectively. FHT were category 1 and 2 throughout stage 2 due to decelerations with pushing (early, late and variables at times). STAGE III: Placenta/Cord Placenta delivered at 6:34 PM after active management and appeared intact with a 3 vessel cord. Fundus firm below umbilicus after deliver of placenta. A short first degree vaginal laceration as repaired with 4-O vicryl with good hemostasis. Superficial bilateral labial lacerations were not repaired. Complications: None. EBL: 100 mL. Needle and sponge counts were correct. The vagina was inspected and no items were left in situ. Patient was doing well with [Gerritt, her and partner at bedside. [place] Baby 1: Infant gender: Male Presentation: vertex Placenta delivery description: Spontaneous Cord Vessel Description: 3 Vessels score (1 min): 8 score (5 min): 9 Plan for aftercare: Routine care
[2020-05-27] MEDS: IBUPROFEN 600 MG TABLET PO (23:28)
[2020-05-28] MEDS: DOCUSATE 100 MG CAPSULE PO (08:34)
[2020-05-28] MEDS: ACETAMINOPHEN 325 MG TABLET 650 MG PO (08:34)
[2020-05-28] MEDS: IBUPROFEN 600 MG TABLET PO (08:34)
[2020-05-28] MEDS: PRENATAL VIT,CALC/IRON/FOLIC 1 TABLET 1 TAB PO (08:34)
--- NOTE | 2020-05-28 13:12 | P.DS_ITS ---
Discharge Providers Provider Date of admission: 05/26/20 18:09 Discharge Date: 05/28/20 Primary care physician: Hyun Pereyra DO Consults: 05/28/20 18:54 Consult to [employer] Work[employer] Routine Comment: Discharge provider: Hyun Pereyra DO Summary Hospital Course Date Patient Seen: 05/28/20 Time Patient Seen: 12:30 Diagnoses: Spontaneous vaginal delivery 40 weeks of GBS positive Hospital Course: Patient is a 29-year-old G1 now P1 after uncomplicated spontaneous vaginal delivery at 40 weeks and 2 days gestation on 05/27/20. Patient came in for cervical ripening the night before then received Pitocin per protocol. Spo ntaneous rupture of membranes happen sometime during labor though was not entirely clear. Fluid appeared to be clear at the time of delivery. She was GBS positive and received vancomycin due to severe penicillin allergy and resistance to clindamycin. She received 1 dose of antibiotics prior to de livery. course was uncomplicated. She was ambulating, voiding and passing flatus. Vaginal bleeding was moderate. Pain controlled with ibuprofen and Tylenol. Breast-feeding was going well though some difficulty with latching on the left side. No concerns in the . Advised patient to call for fevers, severe pain or bleeding through more than a pad an hour. She will follow-up in clinic in 6 weeks or sooner if needed. Peripartum Data Delivery Method: Natural Vaginal Laceration Description: Vaginal - 2nd Degree and Superficial (Bilateral labial) complications: none 1: Gender: Male Disposition of : home Discharge Diagnosis (1) Spontaneous vaginal delivery: Status: Acute (2) 40 weeks gestation of : Status: Acute (3) Positive GBS test: Status: Acute Time Spent with Patient Time attestation: Total time spent providing and/or coordinating discharge services: Time spent: Less than 30 minutes Objective Labs Result Diagrams: 05/26/20 18:58 Exam Vital Signs (past 8 hours): Temperature 97.9? blood pressure 105/66 heart rate 91 Narrative Exam Narrative: General: Awake and alert, no acute distress. HEENT: NCAT, EOMI, moist oral mucosa CV: Regular rate and rhythm, no murmurs, rubs or gallops Lungs: CTAB, no wheezes, rales, or rhonchi Abdomen: Soft, nontender; bowel tones active; uterus firm 1 cm below umbilicus Extremities: Warm, trace edema, 2+ pedal pulses bilaterally Discharge Plan Discharge Plan Patient Disposition: Home Discharge orders & Medications Prescriptions: New docusate sodium [DOK] 100 mg Capsule 100 mg PO DAILY Qty: 30 RF: 0 ibuprofen 600 mg Tablet 600 mg PO Q6HR PRN (Reason: Pain, Mild (1-3)) Qty: 30 RF: 0 Continued prenat.vits,kory,ylu-tasj-rzlim Tablet 1 tab PO DAILY RF: 0 up4 Probiotics Adult 50 Plus 25 billion cell capsule 1 cap PO DAILY RF: 0 Discontinued fluconazole 150 mg tablet 150 mg PO DAILY Qty: 1 RF: 1 azithromycin 250 mg tablet See Rx Instructions PO .COMPLEX Qty: 6 RF: 0 Follow up/Referrals: Hyun Pereyra DO [Primary Care Provider] - (Appointment with on Wednesday,June at 2:30 Pm.) Visit Report/Discharge Packet Visit Report Forms: Patient Portal/API, Stroke Signs & Symptoms Discharge Data Primary Care Provider: Hyun Pereyra
[2020-05-28 18:04] VITALS: BP 110/68; PULSE 88; RESP 17; TEMP 36.8
[2020-05-28] MEDS: MEASLES,MUMPS,RUBELLA VACC/PF 0.5 ML VIAL SUBCUT (18:19)
== END 2020-05-28 18:55 | disposition home or self-care (01) | DRG 560 ==
PROVIDERS: Admitting Provider Family Medicine; PCP Family Medicine; Referring Provider Family Medicine; Visit Provider Family Medicine
DX: O75.81 Maternal exhaustion complicating labor and delivery (principal); O99.824 Streptococcus B carrier state complicating childbirth; Z3A.40 40 weeks gestation of pregnancy; Z37.0 Single live birth; K21.9 Gastro-esophageal reflux disease without esophagitis; O70.0 First degree perineal laceration during delivery; Z20.822 Contact with and (suspected) exposure to COVID-19
CPT/HCPCS: 01967; 36415; 59050; 59409; 85025; 86850; 86900; 86901; 87635; C9803; G0379; J1200; J2590

== ENCOUNTER 2021-06-08 00:18 | Emergency (ER) | payer OTHER, MEDICAID, SELFPAY ==
[2019-09-28 13:25] VITALS: BMI 21.2
[2021-06-08 00:33] VITALS: BP 121/75; PULSE 102; RESP 16; TEMP 36.7; O2SAT 100; BMI 22.1
[2021-06-08 01:01] LABS: Add Manual Diff / Slide Review NO; Basophils Absolute Auto 0 /uL (0-100); Basophils Percent Auto 0.3 % (0-2); Eosinophils Absolute Auto 100 /uL (0-450); Eosinophils Percent Auto 1.2 % (2-4); Hematocrit 39.4 % (36-46); Hemoglobin 13.4 g/dL (12.0-16.0); Lymphocytes Absolute Auto 1100 /uL (1100-4500); Lymphocytes Percent Auto 10.6 % (25-40); Mean Corpuscular HGB Conc 33.9 % (30-36); Mean Corpuscular Hemoglobin 27.9 PG (26-34); Mean Corpuscular Volume 82.5 fL (80-100); Monocytes Absolute Auto 800 /uL (0-900); Monocytes Percent Auto 7.1 % (3-14); Neutrophils Absolute Auto 8600 /uL (1500-7000); Neutrophils Percent Auto 80.8 % (50-75); Platelet Count 234 X10^3/uL (150-400); Red Blood Cell Count 4.78 X10^6/uL (4.0-5.2); Red Cell Distribution Width 12.7 % (11.6-14.8); White Blood Cell Count 10.6 X10^3/uL (4.5-11.0)
[2021-06-08 01:11] LABS: Alanine Aminotransferase 14 IU/L (<35); Albumin 4.5 g/dL (3.5-5.0); Albumin Globulin Ratio 1.5 (1.0-2.8); Alkaline Phosphatase 44 U/L (38-126); Aspartate Aminotransferase 21 IU/L (14-36); Bilirubin Total 0.7 mg/dL (0.2-1.3); Blood Urea Nitrogen 13 mg/dL (7-17); Calcium 8.8 mg/dL (8.4-10.2); Carbon Dioxide 27 mmol/L (22-32); Chloride 105 mmol/L (98-107); Estimated Glomerular Filt Rate > 60.0 mL/min (>60); Glucose 94 mg/dL (70-100); HEMOLYSIS < 15 (0-50); Lipase 69 U/L (23-300); Potassium 3.6 mmol/L (3.4-5.1); Sodium 137 mmol/L (137-145); Total Protein 7.5 g/dL (6.3-8.2)
--- NOTE | 2021-06-08 02:10 | ED.ABDPAIN ---
HPI - Abdominal Pain General Chief Complaint: Abdominal Pain Stated Complaint: severe abd. pain/nausea/vomiting blood Time Seen by Provider: 06/08/21 02:10 Source: patient and family Mode of arrival: Ambulatory History of Present Illness HPI narrative: Patient is a 30-year-old female who presents with nausea vomiting and abdominal pain. It started around 930 this evening her she started having some abdominal discomfort by live-in 30 she was vomiting. She said she threw up multiple times. She said that she threw up a little bit of bright red blood as well. She is having some abdominal pain and cramping now. She had little bit of diarrhea but not a lot. She is tender in her left lower quadrant. No fever or chills. No one else is sick at home. Related Data Home Medications Medication Instructions Recorded Confirmed prenat.vits,kory,dwa-kvyr-uxptk 1 tab PO DAILY 10/16/19 05/27/20 Previous Rx's Medication Instructions Recorded L norgest/E estradiol-E estrad 1 tab PO DAILY #182 ea 07/26/20 0.15 mg-30 mcg (84)/10 mcg(7) tabs,3mos (Seasonique) azithromycin 500 mg tablet See Rx Instructions PO .COMPLEX #3 12/02/20 tab ondansetron 4 mg disintegrating 4 mg PO Q8H PRN #10 tab 06/08/21 tablet Allergies Allergy/AdvReac Type Severity Reaction Status Date / Time Penicillins [PENICILLINS] Allergy Severe Anaphylaxis Verified 12/19/20 14:34 : Swelling of Lip/Tongue/Throat vancomycin Allergy Intermediate Flushing Verified 12/19/20 14:34 Review of Systems Review of Systems Narrative: GENERAL: Denies chills, fatigue, malaise, fever, sweats, travel HEENT: Denies sinus pain, ear pain, sore throat, difficulty swallowing, neck pain RESPIRATORY: Denies dyspnea, cough, wheezing, hemoptysis, sputum. CARDIOVASCULAR: Denies chest pain, palpitations, orthopnea, edema GASTROINTESTINAL: See HPI : Denies dysuria, frequency, incontinence, hematuria, urinary retention, flank pain. MUSCULOSKELETAL: Denies weakness, joint pain, or bony pain SKIN: No rash, no erythema, no pruritus NEUROLOGIC: Denies weakness, dizziness, headache, numbness, change in speech, confusion PSYCHIATRIC: No concerning psychosocial issues. 12 point review of systems is negative except for those stated above and HPI Patient History Medical History Ankle fracture, left Ankle fracture, right Anxiety Infection of stomach Spontaneous vaginal delivery Yeast infection of the vagina Surgical History H/O wisdom tooth extraction History of tonsillectomy and adenoidectomy Family History Mother Liver disease Father No known health problems Family estrangement Grandfather Diabetes mellitus Grandmother Myocardial infarct Grandfather Family estrangement Grandmother Brain aneurysm Lung cancer Stroke Social History marital status: unmarried,living together household members: significant other lives independently: Yes caregiver/support person: No pets and animals: No education level: high school occupational status: employed current occupational exposures/hazards: Yes 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 [employer] special pawan needs: No Smoking Status: Former smoker second hand exposure: No alcohol intake: former (pre- : very occasional) substance use type: does not use Smoking Status: Former smoker alcohol intake frequency: a few times a month Substance Use Type: does not use Exam Initial Vital Signs Initial Vital Signs: Vital Signs Temperature 98.0 F 06/08/21 00:33 Pulse Rate 102 H 06/08/21 00:33 Respiratory Rate 16 06/08/21 00:33 Blood Pressure 121/75 06/08/21 00:33 Pulse Oximetry 100 06/08/21 00:33 GENERAL: Alert well-appearing 30-year-old female and in no acute distress. HEENT: Head atraumatic,EOMI, pupils reactive, face symmetric, moist mucous membranes CARDIOVASCULAR: Regular rate and rhythm without murmurs, rubs or gallops. RESPIRATORY: Breath sounds equal bilaterally, no wheezes rales or rhonchi. ABDOMEN: Soft, mild left lower quadrant tenderness without guarding or rebound some mild left upper quadrant tenderness no right lower quadrant pain negative Benson sign : No CVA tenderness EXTREMITIES: Normal range of motion, no clubbing or edema. Neurovascularly intact NEUROLOGICAL: Alert and oriented x4.Normal gait and speech. SKIN: Warm, dry, no laceration, no petechiae, no rashes or lesions. Course Orders Ordered: ED Orders 06/08/21 00:50 Complete Blood Count AUTO DIFF Stat Comprehensive Metabolic Panel Stat Lipase Stat Test Serum,Qual Stat 06/08/21 02:20 CT abdomen pelvis w con Stat Discontinued Medications Ondansetron HCl (Ondansetron 4 Mg/2 Ml Inj) 4 mg IV NOW ONE Stop: 06/08/21 02:21 Last Admin: 06/08/21 02:48 Dose: 4 mg Documented by: CARY Ondansetron HCl (Ondansetron 4 Mg Odt Prepack) 1 bottle MISC SEEINSTR ONE Stop: 06/08/21 05:08 Pantoprazole Sodium (Pantoprazole 40 Mg Vial) 40 mg IV NOW ONE Stop: 06/08/21 02:21 Last Admin: 06/08/21 02:48 Dose: 40 mg Documented by: CARY Vital Signs Vital signs: Vital Signs - 8 hr 06/08/21 00:33 06/08/21 05:17 Temperature 98.0 F Pulse Rate 102 H 91 H Respiratory Rate 16 16 Blood Pressure 121/75 90/53 L Pulse Oximetry 100 99 MDM - Abdominal Pain Lab Data Result diagrams: 06/08/21 00:50 06/08/21 00:50 Labs: Lab Results 06/08/21 06/08/21 06/08/21 Range/Units 00:50 00:50 00:50 WBC 10.6 (4.5-11.0) X10^3/uL RBC 4.78 (4.0-5.2) X10^6/uL Hgb 13.4 (12.0-16.0) g/dL Hct 39.4 (36-46) % MCV 82.5 (80-100) fL MCH 27.9 (26-34) PG MCHC 33.9 (30-36) % RDW 12.7 (11.6-14.8) % Plt Count 234 (150-400) X10^3/uL Neut % (Auto) 80.8 H (50-75) % Lymph % (Auto) 10.6 L (25-40) % Crowley % (Auto) 7.1 (3-14) % Eos % (Auto) 1.2 L (2-4) % Baso % (Auto) 0.3 (0-2) % Neut # (Auto) 8600 H (1631-9435) /uL Lymph # (Auto) 1100 (7825-6670) /uL Crowley # (Auto) 800 (0-900) /uL Eos # (Auto) 100 (0-450) /uL Baso # (Auto) 0 (0-100) /uL Sodium 137 (137-145) mmol/L Potassium 3.6 (3.4-5.1) mmol/L Chloride 105 (98-107) mmol/L Carbon Dioxide 27 (22-32) mmol/L BUN 13 (7-17) mg/dL Creatinine 0.62 (0.52-1.04) mg/dL Estimated GFR > 60.0 (>60) mL/min BUN/Creatinine Ratio 21.0 (6-22) Glucose 94 (70-100) mg/dL Calcium 8.8 (8.4-10.2) mg/dL Total Bilirubin 0.7 (0.2-1.3) mg/dL AST 21 (14-36) IU/L ALT 14 (<35) IU/L Alkaline Phosphatase 44 (38-126) U/L Total Protein 7.5 (6.3-8.2) g/dL Albumin 4.5 (3.5-5.0) g/dL Globulin 3.0 (1.7-4.1) g/dL Albumin/Globulin Ratio 1.5 (1.0-2.8) Lipase 69 (23-300) U/L Serum , Qual Negative (Negative) Imaging Data CT scan - abdomen/pelvis: Radiologist's Impression: Preliminary report. Air-fluid levels throughout the colon and rectum. This can be seen with patients with diarrhea. No inflammatory bowel changes or obstruction. No other acute process. Borderline splenomegaly. Mild hepatic steatosis. MDM Narrative Medical decision making narrative: Patient has not vomited while in the emergency department. Blood is overall reassuring. She is tender in her left lower quadrant discussed so it is probably gastroenteritis. However his both patient and mother agree to a CT. CT confirms more of a gastroenteritis picture no other acute abnormality. She is tolerating oral fluids in the ED. reports of blood her probably mild esophageal tear. She has not had any further episodes of bleeding she does not have any high risk factors. Discharge Plan Departure Patient Disposition: Home Clinical Impression: Gastroenteritis Instructions: DI for Viral Gastroenteritis -- Adult Activity Restrictions/Additional Instructions: 1) You have been diagnosed with gastroenteritis 2) What to do: Drink frequent but small amounts of fluids. I recommend Gatorade or a Gatorade-like product, as it has small amounts of sugar and salts that improve fluid retention. 3) Take medications as directed Zofran 4 mg every 8 hours if needed for nausea or vomiting--> [facility]) Follow up with your primary care provider in 2-3 days 5) Return to ER if you should have any new or worsening symptoms such as, unable to hold down fluids despite use of anti-nausea medications and the small volume oral rehydration strategy. Prescriptions: New ondansetron 4 mg tablet,disintegrating 4 mg PO Q8H PRN (Reason: nausea and vomiting) Qty: 10 0RF No Action L norgest/e.estradiol-e.estrad [Seasonique] 0.15 mg-30 mcg (84)/10 mcg (7) tablets,dose pack,3 month 1 tab PO DAILY Qty: 182 1RF azithromycin 500 mg tablet See Rx Instructions PO .COMPLEX Qty: 3 0RF Rx Instructions: take 500 mg once daily for 3 days PO prenat.vits,kory,ziv-flmy-fbpvr Tablet 1 tab PO DAILY 0RF Referrals: Hyun Pereyra DO [Primary Care Provider] -
--- NOTE | 2021-06-08 02:20 | DI.CT.S_ITS ---
PROCEDURE: CT ABDOMEN PELVIS W CON INDICATIONS: LLQ pain TECHNIQUE: After the administration of IV contrast, axial sections were acquired from the lung bases to the pubic symphysis. Coronal and sagittal reformats were performed. For radiation dose reduction, the following was used: automated exposure control, adjustment of mA and/or kV according to patient size. COMPARISON: [facility], CT, CT ABDOMEN PELVIS W CON, 01/16/2018, 19:54. FINDINGS: Image quality: Excellent. Lung bases: Unremarkable. Heart: No significant findings. ABDOMEN: Liver: Borderline fatty liver infiltration can be seen. The liver demonstrates normal size and demonstrates no focal lesions. Gallbladder: Unremarkable. Biliary ducts: Unremarkable. Pancreas: Unremarkable. Spleen: The spleen measures at the upper limits of normal at 13 cm. Adrenal Glands: Unremarkable. Kidneys and Ureters: Unremarkable. Stomach and Bowel: In this patient with this given history, scrutiny is given to the sigmoid colon. The sigmoid colon abnormality can be seen. No focal left lower quadrant inflammatory change can be seen. A normal appendix is incidentally noted. Liquid stool is seen throughout the colon, including within the rectum. No dilated loops of small bowel are seen. No significant gastric abnormality is seen. Peritoneum: No abnormal intraperitoneal fluid. No free air. Ventral Wall: No hernia. Abdominal Nodes: No retroperitoneal or mesenteric adenopathy by size criteria. Vessels: Aorta and inferior vena cava are normal in size. PELVIS: Pelvic Organs: The uterus appears normal for age. No adnexal masses are seen. Bladder: Unremarkable. Pelvic Nodes: No enlarged lymph nodes. Miscellaneous: No inguinal hernias are seen. Bones: Mild dextroconvex scoliotic curvature is seen. IMPRESSION: Liquid stool seen throughout the colon, including distally. Please correlate with diarrhea. Incidental note is made of: Borderline fatty liver infiltration Spleen at the upper limits of normal for size Note: No significant discrepancy from the preliminary report. Dictated by: Bhupinder Pierre M.D. on 06/08/2021 at 7:11 Approved by: Bhupinder Pierre M.D. on 06/08/2021 at 7:15
[2021-06-08 02:38] LABS: Pregnancy Test Serum,Qual Negative (Negative)
[2021-06-08] MEDS: PANTOPRAZOLE 40 MG VIAL IV (02:48)
[2021-06-08] MEDS: ONDANSETRON 4 MG/2 ML INJ IV (02:48)
[2021-06-08 05:17] VITALS: BP 90/53; PULSE 91; RESP 16; O2SAT 99
[2021-06-08] MEDS: ONDANSETRON 4 MG ODT PREPACK 1 BOTTLE MISC (05:30)
== END 2021-06-08 05:19 | disposition home or self-care (01) ==
PROVIDERS: Emergency Provider Emergency Medicine; PCP Family Medicine
DX: K52.9 Noninfective gastroenteritis and colitis, unspecified (principal); Z87.891 Personal history of nicotine dependence
CPT/HCPCS: 36415; 74177; 80053; 83690; 84703; 85025; 96374; 96375; 99284; C9113; J2405; Q9967

== ENCOUNTER → 2021-06-14 11:43 | Outpatient (CLI) | payer OTHER, MEDICAID, SELFPAY ==
[2019-09-28 13:25] VITALS: BMI 21.2
[2021-06-14 15:15] LABS: Clostridium Difficile Tox PCR Negative for C. diff (Negative)
== END ==
PROVIDERS: PCP Family Medicine; Referring Provider Family Medicine; Visit Provider Family Medicine
DX: R19.7 Diarrhea, unspecified (principal)
CPT/HCPCS: 87045; 87177; 87493; 87899

== ENCOUNTER → 2021-09-25 15:22 | Outpatient (CLI) | payer OTHER, MEDICAID, SELFPAY ==
[2019-09-28 13:25] VITALS: BMI 21.2
--- NOTE | 2021-09-25 15:23 | DI.US.S_ITS ---
PROCEDURE: US OB <= 14 WEEKS FETUS INDICATIONS: Abdominal and TV for dating and viability OUTSIDE/PRIOR DATING DATA: Last menstrual period (LMP): 07/20/2021 LMP-based estimated date of delivery (LAUREN): 04/26/2022. First dating scan (date and location): 09/25/2021. Estimated date of delivery (LAUREN) from first dating scan: 04/25/2022. The calculations are made using the ultrasound LAUREN of 04/25/2022. TECHNIQUE: Real-time scanning was performed of the fetus and maternal pelvic organs, with image documentation. Endovaginal scanning was also performed to better visualize the fetus and maternal ovaries. COMPARISON: [facility], , US OB <= 14 WEEKS FETUS, 10/16/2019, 9:27. FINDINGS: Embryo: [place]-rump length measures 2.9 cm corresponding to 9 weeks 5 days. Heart rate: 178 Maternal organs: Ovaries within normal limits. IMPRESSION: 9 week 5 day single living IUP corresponding to ultrasound LAUREN of 04/25/2022. We strive to produce accurate, complete, and clear reports of imaging services. To assist us in improving patient care, this report was composed using standard report templates and voice recognition software. Therefore, it may contain abnormal punctuation, insertions and/or omissions. Occasional wrong-word or sound-alike substitutions may occur. Though we review the report and make efforts to correct it, we do recommend that the report be read carefully in proper context to recognize any text inaccuracies. Dictated by: Brandon GARCIA Interpreted: Jorge Espinoza MD on 09/25/2021 at 15:53 Transcribed by: JAYDEN on 09/25/2021 at 15:55 Approved by: Jorge Espinoza M.D. on 09/25/2021 at 17:51
[2021-09-25 16:43] LABS: Add Manual Diff / Slide Review NO; Basophils Absolute Auto 0 /uL (0-100); Basophils Percent Auto 0.4 % (0-2); Eosinophils Absolute Auto 100 /uL (0-450); Eosinophils Percent Auto 0.8 % (2-4); Hematocrit 40.7 % (36-46); Lymphocytes Absolute Auto 1900 /uL (1100-4500); Lymphocytes Percent Auto 26.3 % (25-40); Mean Corpuscular HGB Conc 34.5 % (30-36); Mean Corpuscular Hemoglobin 27.8 PG (26-34); Mean Corpuscular Volume 80.7 fL (80-100); Monocytes Absolute Auto 500 /uL (0-900); Neutrophils Absolute Auto 4800 /uL (1500-7000); Neutrophils Percent Auto 65.5 % (50-75); Platelet Count 273 X10^3/uL (150-400); Red Blood Cell Count 5.04 X10^6/uL (4.0-5.2); Red Cell Distribution Width 13.3 % (11.6-14.8); White Blood Cell Count 7.3 X10^3/uL (4.5-11.0)
[2021-09-25 17:58] LABS: Hepatitis B Surface Antigen NEGATIVE s/c (NEGATIVE)
[2021-09-25 18:04] LABS: HIV 1 & 2 Ab/Ag 4th Gen Combo NEGATIVE (NEGATIVE); Hep C Virus Ab w/Reflex Quant NEGATIVE s/c (NEGATIVE)
[2021-09-25 18:17] LABS: Appearance Urine UA CLEAR; Bilirubin Urine UA NEGATIVE (NEGATIVE); Color Urine UA YELLOW; Glucose Urine UA NEGATIVE (Negative); Ketones Urine UA NEGATIVE (NEGATIVE); Leukocyte Esterase Urine UA TRACE (NEGATIVE); Nitrite Urine UA NEGATIVE (Negative); Occult Blood Urine UA NEGATIVE (Negative); Protein Urine UA NEGATIVE (Negative); Specific Gravity Urine UA <=1.005 (1.000-1.035); Urobilinogen Urine UA 0.2 E.U./dL (0.2)
[2021-09-25 18:37] LABS: Bacteria Urine Few (2-10); RBC Urine 0-1/HPF (0-5/HPF); Squamous Epithelial Cell Urine 10-30 /HPF (0-5/HPF); WBC Urine 0-1/HPF (0-5/HPF)
[2021-09-26 05:42] LABS: RPR Screen Non Reactive (Non Reactive)
[2021-09-26 08:52] LABS: Varicella IgG Antibody 554 index (Immune >165)
== END ==
PROVIDERS: PCP Family Medicine; Referring Provider Family Medicine; Visit Provider Family Medicine
DX: Z34.81 Encounter for supervision of other normal pregnancy, first trimester (principal); Z3A.09 9 weeks gestation of pregnancy
CPT/HCPCS: 36415; 76801; 80055; 81003; 81015; 86787; 86803; 86850; 86900; 86901; 87086; 87389

== ENCOUNTER → 2021-09-29 14:17 | Outpatient (CLI) | payer OTHER, MEDICAID, SELFPAY ==
[2019-09-28 13:25] VITALS: BMI 21.2
[2021-09-29 16:29] LABS: Urine N gonorrhoeae NOT DETECTED
[2021-09-29 16:37] LABS: Urine Chlamydia NOT DETECTED
== END ==
PROVIDERS: PCP Family Medicine; Visit Provider Family Medicine
DX: Z34.81 Encounter for supervision of other normal pregnancy, first trimester (principal); Z11.3 Encounter for screening for infections with a predominantly sexual mode of transmission; Z11.8 Encounter for screening for other infectious and parasitic diseases; Z3A.10 10 weeks gestation of pregnancy
CPT/HCPCS: 87491; 87591

== ENCOUNTER → 2021-11-25 10:31 | Outpatient (CLI) | payer OTHER, MEDICAID, SELFPAY ==
[2021-09-29 16:39] VITALS: BMI 21.2
[2021-11-27 20:45] LABS: AFP, Serum 42.9 ng/mL (.); Calc Gestational Age Ultrasound (.); Estriol, Free 1.74 ng/mL (.); Inhibin A, Dimeric 138.78 pg/mL (.); Inhibin A, MoM 0.79 (.); Maternal Ethnicity Caucasian (.); Maternal Weight 130 lbs (.); Number of Fetuses No (.); OSBR Risk 1 IN 10000 (.); Results Report (.); Test Results *Screen Negative* (.); hCG, MoM 0.41 (.); hCG, Serum 13358 mIU/mL (.)
== END ==
PROVIDERS: PCP Family Medicine; Referring Provider Family Medicine; Visit Provider Family Medicine
DX: Z34.92 Encounter for supervision of normal pregnancy, unspecified, second trimester (principal); Z3A.18 18 weeks gestation of pregnancy
CPT/HCPCS: 36415; 82105; 82677; 84702; 86336

== ENCOUNTER → 2021-12-11 14:44 | Outpatient (CLI) | payer OTHER, MEDICAID, SELFPAY ==
[2021-09-29 16:39] VITALS: BMI 21.2
--- NOTE | 2021-12-11 14:45 | DI.US.S_ITS ---
PROCEDURE: US OB >= 14 WEEKS FETUS INDICATIONS: ANATOMY US OUTSIDE/PRIOR DATING DATA: Last menstrual period (LMP): 07/20/2021 LMP-based estimated date of delivery (LAUREN): 04/26/2022. First dating scan (date and location): 09/25/2021. Estimated date of delivery (LAUREN) from first dating scan: 04/25/2022. TECHNIQUE: Real-time scanning was performed of the fetus, with image documentation and biometric measurements. COMPARISON: [facility], OB <= 14 WEEKS FETUS, 09/25/2021, 15:28. [facility], OB >= 14 WEEKS FETUS, 01/05/2020, 9:27. FINDINGS: General: A single living intrauterine gestation is present. Presentation: Variable. Placenta: Placental position is posterior , with marginal placenta previa with the inferior margin of the placenta near the internal cervical os. Amniotic fluid index: 8.9 cm, normal range is 5-24 cm. Single deepest vertical pocket is 2.6 cm. heart rate: 144 beats per minute. Maternal cervical canal: 3.7 cm long. Normal lower limit is 2.5 cm. biometrics: Biparietal diameter: 19 weeks 4 days Head circumference: 20 weeks 2 days Abdominal circumference: 20 weeks 1 day Femur length: 19 weeks 6 days Clinically estimated gestational age: 20 weeks 4 days Composite gestational age from present scan: 20 weeks 0 days Estimated weight and percentile: 329 g; 20th percentile Anatomic survey: Neuro: Ventricles are non-dilated at less than 10 mm. Cisterna magna is normal at 3-11 mm. Cerebellum is normal in size and morphology. Nuchal skin fold: Normal at less than 6 mm between 14-21 weeks gestational age. Face: Nose and lips, facial profile are normal. Spine: No evidence for spina bifida. Heart: 4-chambered heart is present, with normal ventricular outflow tracts. Diaphragm: Diaphragm is intact. Stomach: Left-sided stomach is present. Kidneys: No hydronephrosis. Normal is less than 5 mm in 2nd trimester, less than 7 mm in 3rd trimester. Cord: 3-vessel cord has orthotopic insertion. Placental cord insertion site not well seen. Bladder: Normal in size. Extremities: All 4 extremities identified. IMPRESSION: 1. Single living IUP redemonstrated and interval growth is normal. 2. Placental cord insertion site not well seen; otherwise normal anatomy. 3. Marginal placenta previa and follow-up is recommended. We strive to produce accurate, complete, and clear reports of imaging services. To assist us in improving patient care, this report was composed using standard report templates and voice recognition software. Therefore, it may contain abnormal punctuation, insertions and/or omissions. Occasional wrong-word or sound-alike substitutions may occur. Though we review the report and make efforts to correct it, we do recommend that the report be read carefully in proper context to recognize any text inaccuracies. Dictated by: Brandon Atkins [facility] Interpreted: Fransico Cho MD on 12/11/2021 at 16:19 Approved by: Fransico Cho M.D. on 12/12/2021 at 17:41
== END ==
PROVIDERS: PCP Family Medicine; Referring Provider Family Medicine; Visit Provider Family Medicine
DX: O44.22 Partial placenta previa NOS or without hemorrhage, second trimester (principal); Z3A.20 20 weeks gestation of pregnancy
CPT/HCPCS: 76811

== ENCOUNTER → 2022-02-10 16:19 | Outpatient (CLI) | payer OTHER, MEDICAID, SELFPAY ==
[2021-09-29 16:39] VITALS: BMI 21.2
[2022-02-10 17:55] LABS: Hematocrit 32.7 % (36-46); Hemoglobin 11.4 g/dL (12.0-16.0)
[2022-02-10 17:59] LABS: GTT (PREG) 1 Hour PP 50gm Dose 139 mg/dL (76-139)
== END ==
PROVIDERS: PCP Family Medicine; Referring Provider Family Medicine; Visit Provider Family Medicine
DX: Z34.92 Encounter for supervision of normal pregnancy, unspecified, second trimester (principal); Z3A.22 22 weeks gestation of pregnancy
CPT/HCPCS: 36415; 82950; 85014; 85018

== ENCOUNTER → 2022-03-13 07:37 | Outpatient (CLI) | payer OTHER, MEDICAID, SELFPAY ==
[2021-09-29 16:39] VITALS: BMI 21.2
--- NOTE | 2022-03-13 07:38 | DI.US.S_ITS ---
PROCEDURE: US OB LIMITED INDICATIONS: follwo up placenta previa, growth OUTSIDE/PRIOR DATING DATA: Last menstrual period (LMP): 07/20/2021 LMP-based estimated date of delivery (LAUREN): 04/26/2022. First dating scan (date and location): 09/25/2021. Estimated date of delivery (LAUREN) from first dating scan: 04/25/2022. Working LAUREN is 04/25/2022 TECHNIQUE: Real-time scanning was performed of the fetus, with image documentation and biometric measurements. COMPARISON: [facility], , OB >= 14 WEEKS FETUS, 12/11/2021, 15:13. FINDINGS: General: A single living intrauterine gestation is present. Presentation: Vertex. Placenta: Placental position is posterior , with the inferior margin of the placenta 3.6 cm above the internal cervical os.. Amniotic fluid index: 11.9 cm, normal range is 5-24 cm. Single deepest vertical pocket is 4.3 cm. heart rate: 133 beats per minute. Maternal cervical canal: 4.1 cm long. Normal lower limit is 2.5 cm. biometrics: Biparietal diameter: 33 weeks 5 days Head circumference: 34 weeks 1 day Abdominal circumference: 33 weeks 4 days Femur length: 32 weeks 5 days Clinically estimated gestational age: 33 weeks 6 days Composite gestational age from present scan: 33 weeks 4 days Estimated weight and percentile: 2191 g; 38th percentile Other: Placental cord insertion site not well seen. IMPRESSION: 1. Single living IUP redemonstrated and interval growth is normal with estimated weight at the 38th percentile. 2. Resolved marginal placenta previa. 3. Placental cord insertion site again not well seen. We strive to produce accurate, complete, and clear reports of imaging services. To assist us in improving patient care, this report was composed using standard report templates and voice recognition software. Therefore, it may contain abnormal punctuation, insertions and/or omissions. Occasional wrong-word or sound-alike substitutions may occur. Though we review the report and make efforts to correct it, we do recommend that the report be read carefully in proper context to recognize any text inaccuracies. Dictated by: Brandon GARCIA Interpreted: Zaheer Ferreira MD on 03/13/2022 at 9:22 Transcribed by: AYDIN on 03/13/2022 at 9:25 Approved by: Chris Richardson M.D. on 04/08/2022 at 8:49
== END ==
PROVIDERS: PCP Family Medicine; Referring Provider Family Medicine; Visit Provider Family Medicine
DX: O44.03 Complete placenta previa NOS or without hemorrhage, third trimester (principal); Z3A.33 33 weeks gestation of pregnancy
CPT/HCPCS: 76815; 76817

== ENCOUNTER → 2022-04-03 12:22 | Outpatient (CLI) | payer OTHER, MEDICAID, SELFPAY ==
[2021-09-29 16:39] VITALS: BMI 21.2
[2022-04-04 10:11] LABS: Strep Grp B PCR POS for Grp B Strep
== END ==
PROVIDERS: PCP Family Medicine; Visit Provider Family Medicine
DX: Z36.85 Encounter for antenatal screening for Streptococcus B (principal); Z3A.36 36 weeks gestation of pregnancy
CPT/HCPCS: 87186; 87653

== ENCOUNTER 2022-04-06 14:40 | Emergency (ER) | payer OTHER, MEDICAID, SELFPAY ==
[2021-09-29 16:39] VITALS: BMI 21.2
[2022-04-06 14:50] VITALS: BP 136/67; PULSE 65; RESP 20; TEMP 36.2; O2SAT 99; BMI 26.5
[2022-04-06] MEDS: LIDOCAINE 1% (PF) 5 ML 10 ML INJ (18:30)
--- NOTE | 2022-04-06 21:03 | ED_ITS ---
HPI - Wound/Laceration <Anahi Delacruz PA-C - Last Filed: 04/06/22 21:09> General Chief Complaint: Wound/Laceration Stated Complaint: sliced hand open with scissors at work Time Seen by Provider: 04/06/22 17:59 Source: patient Mode of arrival: Ambulatory History of Present Illness HPI narrative: 31-year-old female who is 9 months presents to the ED for a laceration sustained to the left middle finger. 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 Bleeding was controlled with pressure. Patient denies numbness, tingling, weakness. Patient endorses full range of motion of the finger and hands. Patient's tetanus is up-to-date. Related Data Home Medications Medication Instructions Recorded Confirmed prenat.vits,kory,pbh-[id number] 1 tab PO DAILY 10/16/19 03/19/22 Lactobacillus rhamnosus GG 20 cell PO 09/04/21 03/19/22 billion cell capsule (Probiotic Digestive Care) Allergies Allergy/AdvReac Type Severity Reaction Status Date / Time Penicillins [PENICILLINS] Allergy Severe Anaphylaxis Verified 04/06/22 14:50 : Swelling of Lip/Tongue/Throat vancomycin Allergy Intermediate Flushing Verified 04/06/22 14:50 Review of Systems <Anahi Delacruz PA-C - Last Filed: 04/06/22 21:09> Review of Systems ROS Unobtainable: All systems reviewed & are unremarkable except as noted in HPI and below Constitutional Constitutional: Denies chills, Denies fatigue, Denies fever(s), Denies frequent falls, Denies lethargy and Denies weakness Eyes Eyes: Denies change in vision, Denies eye discharge, Denies irritation and Denies loss of vision ENT Ears, Nose, Mouth, and Throat: Denies change in voice, Denies dizziness, Denies neck pain, Denies sore throat and Denies throat swelling Cardiovascular Cardiovascular: Denies chest pain, Denies irregular heart rhythm, Denies lightheadedness, Denies palpitations, Denies dyspnea, Denies dyspnea on exertion and Denies orthopnea Respiratory Respiratory: Denies cough, Denies dyspnea, Denies dyspnea on exertion and Denies wheezing Gastrointestinal Gastrointestinal: Denies abdominal pain, Denies change in bowel habits, Denies diarrhea, Denies nausea and Denies vomiting Genitourinary Genitourinary: Denies hematuria, Denies flank pain, Denies urinary incontinence and Denies urinary urgency Musculoskeletal Musculoskeletal: Denies back pain, Denies muscle weakness, Denies neck pain, Denies numbness and Denies tingling Integumentary/Breasts Skin/Breast: Denies pruritus, Denies erythema, Denies rash and Denies wounds Comments: Left middle finger laceration Neurologic Neurologic: Denies behavioral changes, Denies confusion, Denies dizziness, De nies frequent falls, Denies loss of vision, Denies numbness, Denies tingling and Denies weakness Psychiatric Psychiatric: Denies anxiety, Denies behavioral changes, Denies confusion, Denies depression, Denies homicidal ideation and Denies suicidal ideation Endocrine Endocrine: Denies fatigue, Denies flushing and Denies palpitations Hematologic/Lymphatic Hematologic/Lymphatic: Denies easy bruising Allergic/Immunologic Allergic/Immunologic: Denies urticaria, Denies throat swelling and Denies wheezing Patient History <Anahi Delacruz PA-C - Last Filed: 04/06/22 21:09> Medical History Ankle fracture, left Ankle fracture, right Anxiety Infection of stomach Spontaneous vaginal delivery Yeast infection of the vagina Surgical History H/O wisdom tooth extraction History of tonsillectomy and adenoidectomy Family History Mother Liver disease Father No known health problems Family estrangement Grandfather Diabetes mellitus Grandmother Myocardial infarct Grandfather Family estrangement Grandmother Brain aneurysm Lung cancer Stroke Social History marital status: number of children: 1 household members: spouse and children lives independently: Yes caregiver/support person: No housing: house pets and animals: No education level: vocational occupational status: employed current occupational exposures/hazards: Yes 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 pawan needs: No travel history: over 6 months ago seatbelt use: always water heater temp set < 120 deg: No (Will have check and adjust if needed) working smoke detector in home: Yes fire extinguisher in home: Yes carbon monox detector in home: Yes firearms in home: No do you feel safe at home: Yes Smoking Status: Never smoker second hand exposure: No alcohol intake: former substance use type: does not use during the past year weight has: decreased > 10 lbs well-balanced diet: daily or most days daily servings fruits/ve-4 caffeine: Yes Type(s) of exercise: walking Smoking Status: Never smoker alcohol intake frequency: a few times a month Substance Use Type: does not use Exam <Anahi Delacruz PA-C - Last Filed: 04/06/22 21:09> Narrative Exam Narrative: Const General:?cooperative, healthy appearing and comfortable HENMT Head:?normal to inspection Ears:?hearing grossly normal bilaterally Nose:?external nose normal Face and sinus:?normal facial exam and sinuses nontender Mouth:?oral mucosae normal Throat:?posterior oropharynx normal Eyes General:?appearance normal, both eyes and all related structures Neck Neck:?normal visual inspection and no lymphadenopathy noted Resp Effort & Inspection:?normal respiratory effort Auscultation:?clear to auscultation bilaterally Cardio Rate:?regular rate Rhythm:?regular rhythm Integumentary 0.5 cm linear laceration to dorsal aspect of left middle PIP. No deeper structures visualized on examination. There is full range of motion. Strength and sensation intact. Patient is neurovascularly intact. Neuro General:?patient alert, patient awake and patient oriented x3 Initial Vital Signs Initial Vital Signs: Vital Signs Temperature 97.1 F L 04/06/22 14:50 Pulse Rate 65 04/06/22 14:50 Respiratory Rate 20 04/06/22 14:50 Blood Pressure 136/67 04/06/22 14:50 Pulse Oximetry 99 04/06/22 14:50 Oxygen Delivery Method 04/06/22 14:50 <Rigoberto Carney DO - Last Filed: 04/07/22 08:50> Initial Vital Signs Initial Vital Signs: Vital Signs Temperature 97.1 F L 04/06/22 14:50 Pulse Rate 65 04/06/22 14:50 Respiratory Rate 20 04/06/22 14:50 Blood Pressure 136/67 04/06/22 14:50 Pulse Oximetry 99 04/06/22 14:50 Oxygen Delivery Method 04/06/22 14:50 Procedures <Anahi Delacruz PA-C - Last Filed: 04/06/22 21:09> Laceration Repair Laceration 1: Site: hand (Left middle finger) Side (If applicable): left Size (cm): 0.5 Description: linear Local Anesthetic: lidocaine 1% Amount of anesthesia used (mL): 1 Pre-repair: wound explored, irrigated extensively and deep structures intact Skin layer closed with: vicryl Skin layer suture size: 5-0 Number of sutures: 2 Technique: simple, interrupted Course <Anahi Delacruz PA-C - Last Filed: 04/06/22 21:09> Orders Ordered: Discontinued Medications Lidocaine HCl (Lidocaine 1% (Pf) 5 Ml) 10 ml INJ NOW ONE Stop: 04/06/22 18:22 Last Admin: 04/06/22 18:30 Dose: 5 ml Documented By: CTS Vital Signs Vital signs: Vital Signs - 8 hr 04/06/22 14:50 Temperature 97.1 F L Pulse Rate 65 Respiratory Rate 20 Blood Pressure 136/67 Pulse Oximetry 99 Oxygen Delivery Method Room Air <Rigoberto Carney DO - Last Filed: 04/07/22 08:50> Orders Ordered: Discontinued Medications Lidocaine HCl (Lidocaine 1% (Pf) 5 Ml) 10 ml INJ NOW ONE Stop: 04/06/22 18:22 Last Admin: 04/06/22 18:30 Dose: 5 ml Documented By: CTS Vital Signs Vital signs: Vital Signs - 8 hr 04/06/22 14:50 Temperature 97.1 F L Pulse Rate 65 Respiratory Rate 20 Blood Pressure 136/67 Pulse Oximetry 99 Oxygen Delivery Method Room Air MDM - Wound/Laceration <Anahi Delacruz PA-C - Last Filed: 04/06/22 21:09> MDM Narrative Medical decision making narrative: 31-year-old female who is 9 months presents to the ED for a laceration sustained to the left middle finger. History and mechanism of injury not consistent with injury to the bone or deeper structures. Laceration was extensively irrigated and no deeper structures were visualized on exam. Patient has full range of motion and is neurovascularly intact. Laceration was repaired with 2 sutures, which will need to be removed in 7-10 days. ED return precautions, infection precautions discussed with patient. Patient verbalized understanding. Discharge Plan Departure Patient Disposition: Home Clinical Impression: Laceration Instructions: DI for Laceration Repair Activity Restrictions/Additional Instructions: You were evaluated in the ED today for a laceration. Your laceration was repaired with 2 sutures that will need to be removed in 7-10 days. You may see your doctor, go to an urgent care or return to the ED for suture removal. Please watch for signs of infection including erythema, swelling, warmth, pain, discharge. You will need to be seen back in the ED if you note any signs of infection. Please keep the wound clean and dry for the 1st 24 hours, following which you may wash with soap and water, dry the wound, dress with a nonstick dressing. Prescriptions: No Action prenat.vits,kory,[id number]-[id number] Tablet 1 tab PO DAILY Probiotic Digestive Care 20 billion cell capsule PO Referrals: Hyun Pereyra DO [Primary Care Provider] - Stand Alone Forms: Patient Portal/API <Rigoberto Carney DO - Last Filed: 04/07/22 08:50> Cosign ED Attending Cosroneyature Attestation: I was immediately available in the department for consultation. This documentation has been reviewed and I agree with assessment and plan. Supervised by Rigoberto Carney DO
== END 2022-04-06 19:42 | disposition home or self-care (01) ==
PROVIDERS: Emergency Provider Student in an Organized Health Care Education/Training Program; PCP Family Medicine
DX: S61.213A Laceration without foreign body of left middle finger without damage to nail, initial encounter (principal); W26.8XXA Contact with other sharp object(s), not elsewhere classified, initial encounter
CPT/HCPCS: 12001; 99283

== ENCOUNTER 2022-04-21 18:24 | Inpatient (IN) | payer OTHER, MEDICAID, SELFPAY ==
[2021-09-29 16:39] VITALS: BMI 21.2
[2022-04-21 19:48] VITALS: BP 114/72
--- NOTE | 2022-04-21 19:56 | P.HPOB_ITS ---
OB HPI Date/Time Date of admission: 04/21/22 Date Patient Seen: 04/21/22 History of Present Condition Chief complaint: Rupture of membranes LAUREN Calculator Estimated Delivery Date Method Current WG Current Estimate 04/26/22 LMP (Certain) 39w 2d Estimated Gestational Age (weeks): 39w2d : 2 Para: 1 Narrative: 31-year-old at 39 weeks and 2 days gestation presenting with spontaneous rupture of membranes at 5:15 p.m. with clear fluid. Contractions began shortly thereafter. She has continued to leak pink tinged fluid. Baby is active. Epidural requested shortly after arrival in the center and she is now comfortable with epidural. has been uncomplicated for the most part. She does have carpal tunnel syndrome in both hands which she had with her first . care: good care, initiated at week # (10), number of visits (12) and pounds weight gain (30) Dating criteria OB: LMP confirmed by 1st trimester US Ultrasounds: normal mid trimester US Obstetrical complications: none Medical complications OB: other (Carpal tunnel syndrome) Preadmission Labs Last OB Lab Results: Blood Type A Positive 04/21/22 19:35 Antibody Screen Negative 04/21/22 19:35 Hematocrit 36.5 % (36-46) 04/21/22 19:35 Hemoglobin 12.4 g/dL (12.0-16.0) 04/21/22 19:35 Hepatitis B Surface Antigen Negative s/c (NEGATIVE) 09/25/21 16 :07 Hepatitis C Antibody Negative s/c (NEGATIVE) 09/25/21 16:07 Rubella Antibody 34.0 IU/mL (>15) 09/25/21 16:07 Varicella-Zoster IgG Antibody 554 index (Immune >165) 09/25/21 16:07 Glucose 1 Hour 139 mg/dL (76-139) 02/10/22 16:22 Group B Streptococcus (PCR) Pos for grp b strep H 04/03/22 12:2 2 -: Chlamydia screen: negative, Gonorrhea screen: negative and Urine: negative -: PAP smear: Normal Genetic Screens: Quad screen: Normal External Labs -: Urine: negative Prior (ies) Past Pregnancies Del. Date GA/Weeks Labor Lgth Wt Sex Route Outcome Anesthesia Place Delv Breastfeed Preg Comp Name 05/27/20 40.2 7 7 lb 9.448 oz Male vaginal live - full term [facility] 6 weeks, severe mastitis [place] Evaluation Evaluation Baseline heart rate: 120 Variability: Moderate (11-25) monitor accelerations: Present Monitor Decelerations: Absent Contraction Frequency (minutes): 4 Status: Category l Dilation (cm): 8 Effacement (%): 100 station: -1 Non-invasive Membranes Rupture Test: positive [facility] Medical History Ankle fracture, left Ankle fracture, right Anxiety Infection of stomach Spontaneous vaginal delivery Yeast infection of the vagina Surgical History H/O wisdom tooth extraction History of tonsillectomy and adenoidectomy Family History Mother Liver disease Father No known health problems Family estrangement Grandfather Diabetes mellitus Grandmother Myocardial infarct Grandfather Family estrangement Grandmother Brain aneurysm Lung cancer Stroke Social History marital status: number of children: 1 household members: spouse and children lives independently: Yes caregiver/support person: No housing: house pets and animals: No education level: vocational occupational status: employed current occupational exposures/hazards: Yes 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 needs: No travel history: over 6 months ago seatbelt use: always water heater temp set < 120 deg: No (Will have check and adjust if ne eded) working smoke detector in home: Yes fire extinguisher in home: Yes carbon monox detector in home: Yes firearms in home: No do you feel safe at home: Yes Smoking Status: Never smoker second hand exposure: No alcohol intake: former substance use type: does not use during the past year weight has: decreased > 10 lbs well-balanced diet: daily or most days daily servings fruits/ve-4 caffeine: Yes Type(s) of exercise: walking Meds Home Medications and Allergies Home Medications Medication Instructions Recorded Confirmed Type prenat.vits,kory,obp-lkxi-qrqmi 1 tab PO DAILY 10/16/19 04/21/22 History Lactobacillus rhamnosus GG 20 cell PO 09/04/21 04/21/22 History billion cell capsule (Probiotic Digestive Care) Allergies Allergy/AdvReac Type Severity Reaction Status Date / Time Penicillins [PENICILLINS] Allergy Severe Anaphylaxis Verified 04/21/22 11:46 : Swelling of Lip/Tongue/Throat vancomycin Allergy Intermediate Flushing Verified 04/21/22 11:46 OB Exam Vital signs Blood Pressure: 112/70 Pulse Rate: 55 Temperature: 36.0 F HENMT Head: normal to inspection Mouth: oral mucosae normal Eyes General: appearance normal, both eyes and all related structures Resp Effort & Inspection: normal respiratory effort Auscultation: clear to auscultation bilaterally Cardio Rate: regular rate Rhythm: regular rhythm Heart Sounds: S1 normal and S2 normal Extremities Lower extremity: Yes normal to inspection; No edema Presentation: vertex Estimated Weight (lbs): 7 Amniotic Fluid: clear Objective Labs 04/21/22 19:35 Assessment and Plan Assessment and Plan Assessment and Plan narrative: 31-year-old at 39 weeks and 2 days gestation with spontaneous rupture of membranes at home at 5:15 p.m. with clear fluid. She progressed into labor spontaneously and is now comfortable with an epidural. She is GBS positive with severe penicillin allergy. Last she was also GBS positive and received 1 dose of vancomycin prior to delivery. She developed a mild rash which resolved with Benadryl. Plan Vancomycin for GBS prophylaxis, will give Benadryl concurrently Anticipate
[2022-04-21] MEDS: VANCOMYCIN 1,500 MG/300 ML PIGGYBACK 100 MG IV (19:59)
[2022-04-21] MEDS: LACTATED RINGERS 1,000 ML 100 ML IV (20:00)
[2022-04-21] MEDS: diphenhydrAMINE 50 MG/ML VIAL 25 MG IV (20:00)
[2022-04-21 20:07] LABS: Add Manual Diff / Slide Review NO; Basophils Absolute Auto 0 /uL (0-100); Basophils Percent Auto 0.5 % (0-2); Eosinophils Absolute Auto 200 /uL (0-450); Eosinophils Percent Auto 3.1 % (2-4); Hematocrit 36.5 % (36-46); Hemoglobin 12.4 g/dL (12.0-16.0); Lymphocytes Absolute Auto 2500 /uL (1100-4500); Lymphocytes Percent Auto 32.2 % (25-40); Mean Corpuscular Hemoglobin 28.9 PG (26-34); Monocytes Absolute Auto 800 /uL (0-900); Monocytes Percent Auto 10.4 % (3-14); Neutrophils Absolute Auto 4100 /uL (1500-7000); Neutrophils Percent Auto 53.8 % (50-75); Platelet Count 187 X10^3/uL (150-400); Red Blood Cell Count 4.29 X10^6/uL (4.0-5.2); Red Cell Distribution Width 14.8 % (11.6-14.8); White Blood Cell Count 7.6 X10^3/uL (4.5-11.0)
[2022-04-21] MEDS: FENT 2MCG/ML BUPIV 0.125% EPI 200 MCG/100 ML PLAST..BAG 6 MCG EPIDURAL (20:40)
[2022-04-21 21:21] VITALS: BP 112/70; PULSE 55; TEMP 2.2; TEMP 36
[2022-04-21] MEDS: OXYTOCIN PREMIX 30 UNIT/500 ML PLAST..BAG 200 UNIT IV (21:40)
--- NOTE | 2022-04-21 22:00 | PM.OBPRVD ---
Labor & Delivery Delivery date: 04/21/22 Delivery monitor: external FHT Route of delivery: L&D Laceration Description: Perineal - 1st Degree Delivery repair: vicryl Estimated blood loss (mL): 200 Anesthesia Type: Epidural Narrative: Patient is a 31-year-old at 39 weeks and 2 days gestation who gave on 04/21/22 at 2135. LAUREN: 04/26/22 Hospital problems: 39 weeks of Spontaneous vaginal delivery GBS positive Patient presented after spontaneous rupture of membranes at home at 5:15 p.m. with clear fluid. She went on to receive an epidural with excellent pain control. She was started on vancomycin for GBS prophylaxis given severe penicillin allergy. EFM category 1 throughout stage I however there was terminal bradycardia to the 90s after SVE when she was found to be complete at 9:23 p.m.. Heart tones briefly improved after scalp stimulation but did not improve despite position change and oxygen. Fortunately she pushed well over 3 contractions and delivered a vigorous male infant 9:35 p.m.. was vertex and ZAHIRA without a nuchal cord. He was immediately placed on mother's abdomen. Cord was clamped and cut after approximately 1 minute delay. Apgars were 9 and 9. Total rupture of membranes 4 hours and 8 minutes. She did not receive the full dose of vancomycin prior to delivery. Placenta delivered at 9:40 p.m. after active management and appeared intact with a three-vessel cord. Pitocin bolus given via the IV after delivery of placenta. Patient was found to have a small first-degree perineal laceration which was repaired with 4-0 Vicryl with good hemostasis. Fundus firm below umbilicus after delivery. EBL 200 mL. Needle and sponge counts were correct. The vagina was inspected and no items were left in situ. Patient was doing well with Maddix, her and at bedside. Baby 1: Infant gender: Male Presentation: vertex Position: Right Occiput Anterior Placenta delivery description: Spontaneous Cord Vessel Description: 3 Vessels score (1 min): 9 score (5 min): 9 weight: 7 lb 2.393 oz Plan for aftercare: Routine care
[2022-04-22] MEDS: LANOLIN OINT 7 GM 1 APPLIC TOP (02:36)
[2022-04-22] MEDS: IBUPROFEN 600 MG TABLET PO ×2 (02:36→09:23)
[2022-04-22] MEDS: DERMOPLAST SPRAY 20% 60 ML 1 SPRAY TOP (02:37)
[2022-04-22] MEDS: ACETAMINOPHEN 325 MG TABLET 650 MG PO (05:03)
[2022-04-22] MEDS: PRENATAL VIT,CALC/IRON/FOLIC 1 TABLET 1 TAB PO (09:04)
[2022-04-22] MEDS: DOCUSATE 100 MG CAPSULE PO (09:04)
--- NOTE | 2022-04-22 09:12 | PM.OBDS.1 ---
Discharge Providers Provider Date of admission: 04/21/22 18:24 Discharge Date: 04/22/22 Primary care physician: Hyun Pereyra DO Consults: 04/22/22 22:03 Consult to Electronic Security Specialist Routine Comment: Discharge provider: Hyun Pereyra DO Summary Hospital Course Date Patient Seen: 04/22/22 Time Patient Seen: 09:15 Diagnoses: 39 weeks of Spontaneous vaginal delivery GBS positive Hospital Course: Patient is a 31-year-old G2 now P2 after uncomplicated spontaneous vaginal delivery at 39 weeks and 2 days gestation. She presented after spontaneous rupture of membranes with clear fluid, received an epidural and progressed quickly to complete. She was GBS positive with severe penicillin allergy so given vancomycin however did not complete the full dose prior to delivery. She delivered a vigorous male infant without complications. There was a first-degree perineal laceration which was repaired for hemostasis. course uncomplicated. She is ambulating, voiding and passing flatus. Pain controlled with ibuprofen. Vaginal bleeding is moderate as expected. is going well without concerns in the . Follow-up for 6 week visit or sooner if needed. Patient advised to call for fevers, severe pain or bleeding through more than a pad an hour. Peripartum Data Infant Delivery Method: Natural Vaginal Laceration Description: Perineal - 1st Degree complications: none 1: Gender: Male Disposition of : home Discharge Diagnosis (1) Spontaneous vaginal delivery: Status: Acute (2) 39 weeks gestation of : Status: Acute Status at Discharge Cognitive/behavioral status at discharge: at baseline, oriented Functional status at discharge: independent ambulation Overall status at discharge: patient is progressing back to baseline Time Spent with Patient Time attestation: Total time spent providing and/or coordinating discharge services: Time spent: Less than 30 minutes Objective Labs 04/21/22 19:35 Labs: Laboratory Results - last 24 hr 04/21/22 04/21/22 19:35 19:35 WBC 7.6 RBC 4.29 Hgb 12.4 Hct 36.5 MCV 85.0 MCH 28.9 MCHC 34.0 RDW 14.8 Plt Count 187 Neut % (Auto) 53.8 Lymph % (Auto) 32.2 Caroline % (Auto) 10.4 Eos % (Auto) 3.1 Baso % (Auto) 0.5 Neut # (Auto) 4100 Lymph # (Auto) 2500 Caroline # (Auto) 800 Eos # (Auto) 200 Baso # (Auto) 0 Blood Type A Positive Antibody Screen Negative Exam Vital Signs (past 8 hours): Temperature 98.9? blood pressure 100/60 heart rate 62 Narrative Exam Narrative: General: Awake and alert, no acute distress. HEENT: NCAT, EOMI, moist oral mucosa CV: Regular rate and rhythm, no murmurs, rubs or gallops Lungs: CTAB, no wheezes, rales, or rhonchi Abdomen: Soft, nontender; bowel tones active; uterus firm 1 cm below umbilicus and deviated to the right Extremities: Warm, no edema Discharge Plan Discharge Plan Patient Disposition: Home Discharge orders & Medications Prescriptions: New docusate sodium 100 mg Capsule 100 mg PO DAILY Qty: 30 0RF ibuprofen 600 mg Tablet 600 mg PO Q6HR PRN (Reason: Pain, Mild (1-3)) Qty: 30 0RF Continued prenat.vits,kory,cts-cddg-vqthq Tablet 1 tab PO DAILY Probiotic Digestive Care 20 billion cell capsule PO Follow up/Referrals: Hyun Pereyra DO [Primary Care Provider] - 6 Weeks Visit Report/Discharge Packet Stand Alone Forms: Discharge: Care, Patient Portal/API, Stroke Signs & Symptoms Discharge Data Primary Care Provider: Hyun Pereyra Discharges patient from system. Discharge Date/Time: 04/22/22 18:00
[2022-04-22 17:32] VITALS: BP 112/70; PULSE 55; RESP 20; TEMP 2.2; TEMP 36
== END 2022-04-22 18:00 | disposition home or self-care (01) | DRG 560 ==
PROVIDERS: Admitting Provider Family Medicine; PCP Family Medicine; Referring Provider Nurse Practitioner Obstetrics & Gynecology; Visit Provider Family Medicine
DX: O42.02 Full-term premature rupture of membranes, onset of labor within 24 hours of rupture (principal); Z3A.39 39 weeks gestation of pregnancy; Z37.0 Single live birth; O70.0 First degree perineal laceration during delivery; O99.824 Streptococcus B carrier state complicating childbirth; O99.892 Other specified diseases and conditions complicating childbirth; G56.03 Carpal tunnel syndrome, bilateral upper limbs
CPT/HCPCS: 36415; 59025; 59409; 84112; 85025; 86850; 86900; 86901; G0379; J1200; J2590

== ENCOUNTER 2022-07-29 12:29 | Emergency (ER) | payer OTHER, MEDICAID, SELFPAY ==
[2021-09-29 16:39] VITALS: BMI 21.2
[2022-07-29 12:35] VITALS: BP 109/73; PULSE 99; RESP 18; TEMP 36.6; O2SAT 99; BMI 24.7
[2022-07-29 14:03] LABS: Add Manual Diff / Slide Review NO; Basophils Absolute Auto 0 /uL (0-100); Basophils Percent Auto 0.3 % (0-2); Eosinophils Absolute Auto 0 /uL (0-450); Eosinophils Percent Auto 0.6 % (2-4); Hematocrit 42.5 % (36-46); Hemoglobin 14.5 g/dL (12.0-16.0); Lymphocytes Absolute Auto 700 /uL (1100-4500); Lymphocytes Percent Auto 8.6 % (25-40); Mean Corpuscular HGB Conc 34.2 % (30-36); Mean Corpuscular Hemoglobin 27.8 PG (26-34); Mean Corpuscular Volume 81.1 fL (80-100); Monocytes Absolute Auto 500 /uL (0-900); Neutrophils Absolute Auto 6500 /uL (1500-7000); Neutrophils Percent Auto 84.5 % (50-75); Platelet Count 225 X10^3/uL (150-400); Red Blood Cell Count 5.24 X10^6/uL (4.0-5.2); Red Cell Distribution Width 13.5 % (11.6-14.8); White Blood Cell Count 7.7 X10^3/uL (4.5-11.0)
--- NOTE | 2022-07-29 14:17 | ED_ITS ---
HPI - Abdominal Pain <Jamal Dutton PA-C - Last Filed: 07/29/22 18:13> General Chief Complaint: Abdominal Pain Stated Complaint: SHARP PAIN/ABD PAIN/NAUSEA Time Seen by Provider: 07/29/22 14:00 Source: patient Mode of arrival: Ambulatory History of Present Illness HPI narrative: This is a 31-year-old female presents to the emergency department complaining of sharp cramping abdominal pain behind her umbilicus that started yesterday. No other symptoms other than nausea. Patient states that she has the pain inter mittently surrounding her umbilicus as well as suprapubic area. She denies any other symptoms. States she has some mild nausea when the pain is severe. Denies any changes in bowel movements, fevers, vaginal bleeding or discharge, pelvic pain, dysuria, urinary frequency, or any other concerning signs or symptoms. Does state she has a history of acid reflux. Related Data Previous Rx's Medication Instructions Recorded L norgest/E estradiol-E estrad 1 tab PO DAILY #182 ea 06/05/22 0.15 mg-30 mcg (84)/10 mcg(7) tabs,3mos (Seasonique) pantoprazole 40 mg tablet,delayed 40 mg PO DAILY #14 tabs 07/29/22 release Allergies Allergy/AdvReac Type Severity Reaction Status Date / Time Penicillins [PENICILLINS] Allergy Severe Anaphylaxis Verified 07/29/22 12:39 : Swelling of Lip/Tongue/Throat vancomycin Allergy Intermediate Flushing Verified 07/29/22 12:39 Review of Systems <Jamal Dutton PA-C - Last Filed: 07/29/22 18:13> Review of Systems Narrative: GENERAL: Denies chills, fatigue, malaise, fever, sweats. HEENT: Denies sinus pain, ear pain, sore throat, difficulty swallowing, dizziness. RESPIRATORY: Denies dyspnea, cough, wheezing, hemoptysis, sputum. CARDIOVASCULAR: Denies chest pain, palpitations, orthopnea, edema, GASTROINTESTINAL: Reports abdominal pain, nausea, Denies , vomiting, diarrhea, constipation, melena. : Denies dysuria, frequency, incontinence, hematuria, urinary retention. MUSCULOSKELETAL: denies weakness, joint pain, or bony pain SKIN: Denies rash, skin lesions, or other NEUROLOGIC: Denies weakness, headache, numbness, change in speech, confusion, seizures, incoordination. PSYCHIATRIC: No concerning psychosocial issues. 12 point review of systems is negative except for those stated above Patient History <Jamal Dutton PA-C - Last Filed: 07/29/22 18:13> Medical History (Updated 07/29/22 @ 17:31 by Jamal Dutton PA-C) Ankle fracture, left Ankle fracture, right Anxiety Infection of stomach Spontaneous vaginal delivery Yeast infection of the vagina Surgical History H/O wisdom tooth extraction History of tonsillectomy and adenoidectomy Family History Mother Liver disease Father No known health problems Family estrangement Grandfather Diabetes mellitus Grandmother Myocardial infarct Grandfather Family estrangement Grandmother Brain aneurysm Lung cancer Stroke Social History marital status: number of children: 1 household members: spouse and children lives independently: Yes caregiver/support person: No housing: house pets and animals: No education level: vocational occupational status: employed current occupational exposures/hazards: Yes 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 pawan needs: No travel history: over 6 months ago seatbelt use: always water heater temp set < 120 deg: No (Will have check and adjust if needed) working smoke detector in home: Yes fire extinguisher in home: Yes carbon monox detector in home: Yes firearms in home: No do you feel safe at home: Yes Smoking Status: Never smoker second hand exposure: No alcohol intake: former substance use type: does not use during the past year weight has: decreased > 10 lbs well-balanced diet: daily or most days daily servings fruits/ve-4 caffeine: Yes Type(s) of exercise: walking Smoking Status: Never smoker alcohol intake frequency: a few times a month Substance Use Type: does not use Exam <Jamal Dutton PA-C - Last Filed: 07/29/22 18:13> Narrative Exam Narrative: GENERAL: Well-developed patient, in mild distress. HEAD: Atraumatic. Normocephalic. EYES: Pupils equal round and reactive. Extraocular motions intact. No scleral icterus. No injection or drainage. ENT: Nose without bleeding, purulent drainage. Throat without erythema, to nsillar hypertrophy or exudate. Airway patent. NECK: Trachea midline. Non tender CARDIOVASCULAR: Regular rate and rhythm without murmurs, gallops, or rubs. RESPIRATORY: Clear to auscultation. Breath sounds equal bilaterally. No wheezes, rales, or rhonchi. GASTROINTESTINAL: Abdomen soft, mild tenderness to palpation to the epigastric area, nondistended. EXTREMITIES: No edema or joint tenderness. BACK: Nontender without deformity or crepitance. No flank tenderness. NEURO: AOx3. SKIN: No rash or erythema of visible areas Initial Vital Signs Initial Vital Signs: Vital Signs Temperature 97.9 F 07/29/22 12:35 Pulse Rate 99 H 07/29/22 12:35 Respiratory Rate 18 07/29/22 12:35 Blood Pressure 109/73 07/29/22 12:35 Pulse Oximetry 99 07/29/22 12:35 Oxygen Delivery Method Room Air 07/29/22 12:35 <Amandeep Granados MD - Last Filed: 08/06/22 03:22> Initial Vital Signs Initial Vital Signs: Vital Signs Temperature 97.9 F 07/29/22 12:35 Pulse Rate 99 H 07/29/22 12:35 Respiratory Rate 18 07/29/22 12:35 Blood Pressure 109/73 07/29/22 12:35 Pulse Oximetry 99 07/29/22 12:35 Oxygen Delivery Method Room Air 07/29/22 12:35 Course <Jamal Dutton PA-C - Last Filed: 07/29/22 18:13> Orders Ordered: Discontinued Medications Ondansetron HCl (Ondansetron 4 Mg Odt) 4 mg PO NOW PRN PRN Reason: Nausea And Vomiting Ondansetron HCl (Ondansetron 4 Mg/2 Ml Inj) 4 mg IV NOW PRN PRN Reason: Nausea And Vomiting Vital Signs Vital signs: Vital Signs - 8 hr 07/29/22 12:35 07/29/22 17:42 Temperature 97.9 F Pulse Rate 99 H 91 H Respiratory Rate 18 18 Blood Pressure 109/73 104/68 Pulse Oximetry 99 99 Oxygen Delivery Method Room Air Room Air <Amandeep Granados MD - Last Filed: 08/06/22 03:22> Orders Ordered: Discontinued Medications Ondansetron HCl (Ondansetron 4 Mg Odt) 4 mg PO NOW PRN PRN Reason: Nausea And Vomiting Ondansetron HCl (Ondansetron 4 Mg/2 Ml Inj) 4 mg IV NOW PRN PRN Reason: Nausea And Vomiting Vital Signs Vital signs: Vital Signs - 8 hr 07/29/22 12:35 07/29/22 17:42 Temperature 97.9 F Pulse Rate 99 H 91 H Respiratory Rate 18 18 Blood Pressure 109/73 104/68 Pulse Oximetry 99 99 Oxygen Delivery Method Room Air Room Air MDM - Abdominal Pain <Jamal Dutton PA-C - Last Filed: 07/29/22 18:13> Lab Data 07/29/22 13:55 07/29/22 13:55 Labs: Lab Results 07/29/22 07/29/22 07/29/22 Range/Units 13:55 13:55 14:48 WBC 7.7 (4.5-11.0) X10^3/uL RBC 5.24 H (4.0-5.2) X10^6/uL Hgb 14.5 (12.0-16.0) g/dL Hct 42.5 (36-46) % MCV 81.1 (80-100) fL MCH 27.8 (26-34) PG MCHC 34.2 (30-36) % RDW 13.5 (11.6-14.8) % Plt Count 225 (150-400) X10^3/uL Neut % (Auto) 84.5 H (50-75) % Lymph % (Auto) 8.6 L (25-40) % [place] % (Auto) 6.0 (3-14) % Eos % (Auto) 0.6 L (2-4) % Baso % (Auto) 0.3 (0-2) % Neut # (Auto) 6500 (2682-3709) /uL Lymph # (Auto) 700 L (4194-5474) /uL [place] # (Auto) 500 (0-900) /uL Eos # (Auto) 0 (0-450) /uL Baso # (Auto) 0 (0-100) /uL Sodium 136 L (137-145) mmol/L Potassium 3.4 (3.4-5.1) mmol/L Chloride 103 (98-107) mmol/L Carbon Dioxide 22 (22-32) mmol/L BUN 9 (7-17) mg/dL Creatinine 0.73 (0.52-1.04) mg/dL Estimated GFR > 60 (>60) mL/min BUN/Creatinine Ratio 12.3 (6-22) Glucose 89 (70-100) mg/dL Calcium 8.2 L (8.4-10.2) mg/dL Total Bilirubin 1.2 (0.2-1.3) mg/dL AST 19 (14-36) IU/L ALT 15 (<35) IU/L Alkaline Phosphatase 55 (38-126) U/L Total Protein 7.7 (6.3-8.2) g/dL Albumin 4.5 (3.5-5.0) g/dL Globulin 3.2 (1.7-4.1) g/dL Albumin/Globulin Ratio 1.4 (1.0-2.8) Lipase 48 (23-300) U/L Ur Bilirubin Confirm Negative (Negative) Urine RBC (0-5/HPF) Urine WBC (0-5/HPF) Ur Squamous Epith Cells (0-5/HPF) Urine Bacteria (None) Ur Culture Indicated? 07/29/22 Range/Units 14:48 WBC (4.5-11.0) X10^3/uL RBC (4.0-5.2) X10^6/uL Hgb (12.0-16.0) g/dL Hct (36-46) % MCV (80-100) fL MCH (26-34) PG MCHC (30-36) % RDW (11.6-14.8) % Plt Count (150-400) X10^3/uL Neut % (Auto) (50-75) % Lymph % (Auto) (25-40) % [place] % (Auto) (3-14) % Eos % (Auto) (2-4) % Baso % (Auto) (0-2) % Neut # (Auto) (9427-4647) /uL Lymph # (Auto) (4306-6733) /uL [place] # (Auto) (0-900) /uL Eos # (Auto) (0-450) /uL Baso # (Auto) (0-100) /uL Sodium (137-145) mmol/L Potassium (3.4-5.1) mmol/L Chloride (98-107) mmol/L Carbon Dioxide (22-32) mmol/L BUN (7-17) mg/dL Creatinine (0.52-1.04) mg/dL Estimated GFR (>60) mL/min BUN/Creatinine Ratio (6-22) Glucose (70-100) mg/dL Calcium (8.4-10.2) mg/dL Total Bilirubin (0.2-1.3) mg/dL AST (14-36) IU/L ALT (<35) IU/L Alkaline Phosphatase (38-126) U/L Total Protein (6.3-8.2) g/dL Albumin (3.5-5.0) g/dL Globulin (1.7-4.1) g/dL Albumin/Globulin Ratio (1.0-2.8) Lipase (23-300) U/L Ur Bilirubin Confirm (Negative) Urine RBC 5-10/hpf H (0-5/HPF) Urine WBC 1-5/hpf (0-5/HPF) Ur Squamous Epith Cells 1-5 /hpf D (0-5/HPF) Urine Bacteria Few (2-10) H (None) Ur Culture Indicated? Cult not indicated Point of care testing: Point of Care Testing Test Results Negative Urine Dip Bedside Urine Glucose Negative Bedside Urine Bilirubin + 1 Bedside Urine Ketone ++ 40 Urine Specific [place] 1.030 Bedside Urine Occult Blood ++ Bedside Urine pH 6.0 Bedside Urine Protein +/- 15 Bedside Urine Urobilinogen - Negative Bedside Urine Nitrite - Negative Bedside Urine Leukocytes - Negative Esterase Imaging Data CT scan - abdomen/pelvis: Radiologist's Impression: [address] [address] [address] Scan Report Signed Patient: Aisha Lopez MR#: [id number] : 1990 Acct:[id number] Age/Sex: 31 / F Date of Service: 07/29/22 Loc: ED Accession Number: [id number] ?? Procedure: CT abdomen pelvis w con Ordering Provider: Jamal Dutton P.A-C PROCEDURE:? CT ABDOMEN PELVIS W CON ? INDICATIONS:? Epigastric and suprapubic pain ? TECHNIQUE:? After the administration of intravenous contrast, axial sections acquired from the lung bases to the pubic symphysis.? Coronal and sagittal reformats were performed.? For radiation dose reduction, the following was used:? automated exposure control, adjustment of mA and/or kV according to patient size.? ? COMPARISON:? [facility], CT, CT ABDOMEN PELVIS W [facility], 06/08/2021, 2:48. ? FINDINGS:? Image quality:? Good ? Lower chest:? Lung bases are unremarkable.? Mild nonspecific distal esophageal wall thickening. ? Solid organs:? Liver is unremarkable.? Gallbladder is unremarkable.? No pathologic biliary ductal dilation or pancreatic ductal dilation.? No splenomegaly.? No adrenal nodules.? No hydronephrosis. ? Vessels and lymph nodes:? The main portal vein is patent.? No abdominal aortic aneurysm.? No pathologic adenopathy by size criteria. ? Bowel and peritoneum:? No evidence of small bowel obstruction.? Appendix appears normal.? Liquid colonic contents.? There also prominent distal loops of small bowel.? No pathologic ascites or abscess. ? Body wall:? Unremarkable ? Pelvis:? Bladder is unremarkable.? Heterogeneous uterus, probably physiologic for age.? Reproductive organs are not well evaluated on CT.? This could be evaluated with ultrasound if necessary. ? Bones:? No acute or suspicious osseous finding. ? IMPRESSION:? No bowel obstruction.? No appendicitis.? Liquid colonic contents.? Prominent fluid-filled loops of distal small bowel.? These could represent mild enterocolitis. ? Mild nonspecific distal esophageal wall thickening possibly esophagitis, for example from reflux.? This could be further evaluated endoscopy if necessary.? ? ? Dictated by: Luis Felipe Oakley M.D. on 07/29/2022 at 17:06 ? ? Approved by: Luis Felipe Oakely M.D. on 07/29/2022 at 17:12 ? MDM Narrative Medical decision making narrative: MDM * differential diagnosis includes but not limited to pancreatitis, appendicitis, cholecystitis, ovarian torsion, UTI, gastroenteritis * Prior records reviewed: Patient was seen about 4 months ago due to a laceration. Anaphylactic allergy to penicillins. Patient was 9 months at that time. * My lab interpretation: Lipase within normal limits, low concern for pancreatitis. CBC and CMP unremarkable, low concern for acute infection. Urine showed no evidence of UTI * My imgaing interpretation: CT abdomen and pelvis showed no acute abnormalities. Did show mild enteric colitis as well as possible esophagitis. * Clinical Decision Rules/Scores evaluated: None * Independent discussions with: None ED Course: This is a 31-year-old female presents emergency department due to epigastric abdominal pain. Lab work was unremarkable low concern for any kind of pancreatitis, cholecystitis, or appendicitis. UA showed no evidence of or UTI. CT abdomen and pelvis did show mild enteric colitis as well a s esophagitis. Recommended a bland diet. Pantoprazole will be prescribed this patient states his history of somewhat severe heartburn. Recommended bland liquid diet until symptoms improve. Shared Decision Making: Discussed plan with the patient who is comfortable with the plan. Social Considerations: None Disposition: Discharged <Amandeep Granados MD - Last Filed: 08/06/22 03:22> Lab Data Labs: Lab Results 07/29/22 07/29/22 07/29/22 Range/Units 13:55 13:55 14:48 WBC 7.7 (4.5-11.0) X10^3/uL RBC 5.24 H (4.0-5.2) X10^6/uL Hgb 14.5 (12.0-16.0) g/dL Hct 42.5 (36-46) % MCV 81.1 (80-100) fL MCH 27.8 (26-34) PG MCHC 34.2 (30-36) % RDW 13.5 (11.6-14.8) % Plt Count 225 (150-400) X10^3/uL Neut % (Auto) 84.5 H (50-75) % Lymph % (Auto) 8.6 L (25-40) % [place] % (Auto) 6.0 (3-14) % Eos % (Auto) 0.6 L (2-4) % Baso % (Auto) 0.3 (0-2) % Neut # (Auto) 6500 (4687-3832) /uL Lymph # (Auto) 700 L (7909-7225) /uL [place] # (Auto) 500 (0-900) /uL Eos # (Auto) 0 (0-450) /uL Baso # (Auto) 0 (0-100) /uL Sodium 136 L (137-145) mmol/L Potassium 3.4 (3.4-5.1) mmol/L Chloride 103 (98-107) mmol/L Carbon Dioxide 22 (22-32) mmol/L BUN 9 (7-17) mg/dL Creatinine 0.73 (0.52-1.04) mg/dL Estimated GFR > 60 (>60) mL/min BUN/Creatinine Ratio 12.3 (6-22) Glucose 89 (70-100) mg/dL Calcium 8.2 L (8.4-10.2) mg/dL Total Bilirubin 1.2 (0.2-1.3) mg/dL AST 19 (14-36) IU/L ALT 15 (<35) IU/L Alkaline Phosphatase 55 (38-126) U/L Total Protein 7.7 (6.3-8.2) g/dL Albumin 4.5 (3.5-5.0) g/dL Globulin 3.2 (1.7-4.1) g/dL Albumin/Globulin Ratio 1.4 (1.0-2.8) Lipase 48 (23-300) U/L Ur Bilirubin Confirm Negative (Negative) Urine RBC (0-5/HPF) Urine WBC (0-5/HPF) Ur Squamous Epith Cells (0-5/HPF) Urine Bacteria (None) Ur Culture Indicated? 07/29/22 Range/Units 14:48 WBC (4.5-11.0) X10^3/uL RBC (4.0-5.2) X10^6/uL Hgb (12.0-16.0) g/dL Hct (36-46) % MCV (80-100) fL MCH (26-34) PG MCHC (30-36) % RDW (11.6-14.8) % Plt Count (150-400) X10^3/uL Neut % (Auto) (50-75) % Lymph % (Auto) (25-40) % [place] % (Auto) (3-14) % Eos % (Auto) (2-4) % Baso % (Auto) (0-2) % Neut # (Auto) (1689-4717) /uL Lymph # (Auto) (7148-3308) /uL [place] # (Auto) (0-900) /uL Eos # (Auto) (0-450) /uL Baso # (Auto) (0-100) /uL Sodium (137-145) mmol/L Potassium (3.4-5.1) mmol/L Chloride (98-107) mmol/L Carbon Dioxide (22-32) mmol/L BUN (7-17) mg/dL Creatinine (0.52-1.04) mg/dL Estimated GFR (>60) mL/min BUN/Creatinine Ratio (6-22) Glucose (70-100) mg/dL Calcium (8.4-10.2) mg/dL Total Bilirubin (0.2-1.3) mg/dL AST (14-36) IU/L ALT (<35) IU/L Alkaline Phosphatase (38-126) U/L Total Protein (6.3-8.2) g/dL Albumin (3.5-5.0) g/dL Globulin (1.7-4.1) g/dL Albumin/Globulin Ratio (1.0-2.8) Lipase (23-300) U/L Ur Bilirubin Confirm (Negative) Urine RBC 5-10/hpf H (0-5/HPF) Urine WBC 1-5/hpf (0-5/HPF) Ur Squamous Epith Cells 1-5 /hpf D (0-5/HPF) Urine Bacteria Few (2-10) H (None) Ur Culture Indicated? Cult not indicated Point of care testing: Point of Care Testing Test Results Negative Urine Dip Bedside Urine Glucose Negative Bedside Urine Bilirubin + 1 Bedside Urine Ketone ++ 40 Urine Specific [place] 1.030 Bedside Urine Occult Blood ++ Bedside Urine pH 6.0 Bedside Urine Protein +/- 15 Bedside Urine Urobilinogen - Negative Bedside Urine Nitrite - Negative Bedside Urine Leukocytes - Negative Esterase Discharge Plan Departure Patient Disposition: Home Clinical Impression: Gastroenteritis, Esophagitis Instructions: DI for Viral Gastroenteritis -- Adult Activity Restrictions/Additional Instructions: Thank you for coming to the [facility] Emergency Department today. Your CT showed no significant life-threatening abnormalities. Your appendix, gallbladder, pancreas all appeared normal. It did show mild inflammation in your colon which could be due to something similar to gastroenteritis. I recommend a bland liquid diet until your symptoms improve. The CT also showed findings suggestive of esophagitis which is maybe caused by the heart burn you are describing. Please take the medication as prescribed as this will help with your symptoms. I recommend you follow-up with your primary care provider for possible increasing of the dosage if your symptoms continue. I sent your medications to [facility] in [place]. I hope you feel better soon. Prescriptions: New pantoprazole 40 mg tablet,delayed release (DR/EC) 40 mg PO DAILY Qty: 14 0RF No Action L norgest/e.estradiol-e.estrad [Seasonique] 0.15 mg-30 mcg (84)/10 mcg (7) tablets,dose pack,3 month 1 tab PO DAILY Qty: 182 1RF Referrals: Hyun Pereyra DO [Primary Care Provider] - Stand Alone Forms: Patient Portal/API <Amandeep Granados MD - Last Filed: 08/06/22 03:22> Cosign ED Attending Cosignature Attestation: I was immediately available in the department for consultation. ?This documenta tion has been reviewed and I agree with assessment and plan. Supervised by Amandeep Granados MD
[2022-07-29 14:18] LABS: Alanine Aminotransferase 15 IU/L (<35); Albumin 4.5 g/dL (3.5-5.0); Albumin Globulin Ratio 1.4 (1.0-2.8); Alkaline Phosphatase 55 U/L (38-126); Aspartate Aminotransferase 19 IU/L (14-36); BUN Creatinine Ratio 12.3 (6-22); Bilirubin Total 1.2 mg/dL (0.2-1.3); Blood Urea Nitrogen 9 mg/dL (7-17); Calcium 8.2 mg/dL (8.4-10.2); Carbon Dioxide 22 mmol/L (22-32); Chloride 103 mmol/L (98-107); Estimated Glomerular Filt Rate > 60 mL/min (>60); Globulin 3.2 g/dL (1.7-4.1); Glucose 89 mg/dL (70-100); HEMOLYSIS < 15 (0-50); Lipase 48 U/L (23-300); Potassium 3.4 mmol/L (3.4-5.1); Sodium 136 mmol/L (137-145); Total Protein 7.7 g/dL (6.3-8.2)
--- NOTE | 2022-07-29 15:03 | DI.CT.S_ITS ---
PROCEDURE: CT ABDOMEN PELVIS W CON INDICATIONS: Epigastric and suprapubic pain TECHNIQUE: After the administration of intravenous contrast, axial sections acquired from the lung bases to the pubic symphysis. Coronal and sagittal reformats were performed. For radiation dose reduction, the following was used: automated exposure control, adjustment of mA and/or kV according to patient size. COMPARISON: [facility], CT, CT ABDOMEN PELVIS W CON, 06/08/2021, 2:48. FINDINGS: Image quality: Good Lower chest: Lung bases are unremarkable. Mild nonspecific distal esophageal wall thickening. Solid organs: Liver is unremarkable. Gallbladder is unremarkable. No pathologic biliary ductal dilation or pancreatic ductal dilation. No splenomegaly. No adrenal nodules. No hydronephrosis. Vessels and lymph nodes: The main portal vein is patent. No abdominal aortic aneurysm. No pathologic adenopathy by size criteria. Bowel and peritoneum: No evidence of small bowel obstruction. Appendix appears normal. Liquid colonic contents. There also prominent distal loops of small bowel. No pathologic ascites or abscess. Body wall: Unremarkable Pelvis: Bladder is unremarkable. Heterogeneous uterus, probably physiologic for age. Reproductive organs are not well evaluated on CT. This could be evaluated with ultrasound if necessary. Bones: No acute or suspicious osseous finding. IMPRESSION: No bowel obstruction. No appendicitis. Liquid colonic contents. Prominent fluid-filled loops of distal small bowel. These could represent mild enterocolitis. Mild nonspecific distal esophageal wall thickening possibly esophagitis, for example from reflux. This could be further evaluated endoscopy if necessary. Dictated by: Luis Felipe Oakley M.D. on 07/29/2022 at 17:06 Approved by: Luis Felipe Oakley M.D. on 07/29/2022 at 17:12
[2022-07-29 15:39] LABS: Ictotest Urine Negative (Negative)
[2022-07-29 15:42] LABS: Bacteria Urine Few (2-10); Culture Indicated Urine Cult Not Indicated; RBC Urine 5-10/HPF (0-5/HPF); Squamous Epithelial Cell Urine 1-5 /HPF (0-5/HPF); WBC Urine 1-5/HPF (0-5/HPF)
[2022-07-29 17:42] VITALS: BP 104/68; PULSE 91; RESP 18; O2SAT 99
== END 2022-07-29 17:44 | disposition home or self-care (01) ==
PROVIDERS: Emergency Medicine; Emergency Provider Physician Assistant Medical; PCP Family Medicine
DX: K52.9 Noninfective gastroenteritis and colitis, unspecified (principal); K20.90 Esophagitis, unspecified without bleeding; R11.0 Nausea
CPT/HCPCS: 36415; 74177; 80053; 81003; 81015; 81025; 83690; 85025; 87086; 99284; Q9967

== ENCOUNTER → 2022-12-15 16:08 | Outpatient (CLI) | payer OTHER, MEDICAID, SELFPAY ==
[2021-09-29 16:39] VITALS: BMI 21.2
--- NOTE | 2022-12-15 16:11 | DI.US.S_ITS ---
PROCEDURE: US PELVIC COMPLETE INDICATIONS: Breakthru bleeding on continuous OCPs; LLQ pain TECHNIQUE: Real-time scanning was performed of the pelvic organs, with image documentation. Additional endovaginal scanning was necessary due to incomplete visualization of the adnexal and endometrial structures by transabdominal scanning. COMPARISON: [facility], CT, CT ABDOMEN PELVIS W CON, 07/29/2022, 15:38. [facility], US, US PELVIC COMPLETE, 01/16/2018, 18:45. FINDINGS: Uterus: Uterus is retroverted and normal in size at 7.1 x 3.9 x 5.7 cm. The myometrium is homogeneous. The endometrium measures 7 mm combined thickness. There are prominent vessels noted within the uterus and pelvis. Ovaries: The right ovary measures 2.9 x 1.5 x 1.5 cm, with a calculated ovarian volume of 3.4 cc. The left ovary measures 2.8 x 1.2 x 1.4 cm, with a calculated ovarian volume of 2.4 cc. The ovaries have a normal sonographic appearance. Less than 12 follicles can be seen in each ovary. No adnexal masses are seen. Other: No pathologic free abdominal or pelvic fluid. IMPRESSION: There are multiple prominent uterine and adjacent pelvic vessels which are nonspecific but may represent pelvic congestion syndrome in the appropriate clinical setting. Otherwise, unremarkable sonographic evaluation of the pelvis. We strive to produce accurate, complete, and clear reports of imaging services. To assist us in improving patient care, this report was composed using standard report templates and voice recognition software. Therefore, it may contain abnormal punctuation, insertions and/or omissions. Occasional wrong-word or sound-alike substitutions may occur. Though we review the report and make efforts to correct it, we do recommend that the report be read carefully in proper context to recognize any text inaccuracies. Dictated by: El Sue M.D. on 12/15/2022 at 17:36 Approved by: El Sue M.D. on 12/15/2022 at 17:42
== END ==
PROVIDERS: PCP Family Medicine; Referring Provider Physician Assistant; Visit Provider Physician Assistant
DX: N92.0 Excessive and frequent menstruation with regular cycle (principal); R10.32 Left lower quadrant pain
CPT/HCPCS: 76856

== ENCOUNTER → 2023-02-16 14:51 | Outpatient (CLI) | payer OTHER, MEDICAID, SELFPAY ==
[2021-09-29 16:39] VITALS: BMI 21.2
[2023-02-16 15:45] LABS: Add Manual Diff / Slide Review NO; Basophils Absolute Auto 0 /uL (0-100); Basophils Percent Auto 0.4 % (0-2); Eosinophils Absolute Auto 100 /uL (0-450); Eosinophils Percent Auto 2.5 % (2-4); Hematocrit 34.8 % (36-46); Lymphocytes Absolute Auto 2000 /uL (1100-4500); Lymphocytes Percent Auto 38.9 % (25-40); Mean Corpuscular HGB Conc 34.5 % (30-36); Mean Corpuscular Volume 81.3 fL (80-100); Monocytes Absolute Auto 400 /uL (0-900); Monocytes Percent Auto 7.8 % (3-14); Neutrophils Absolute Auto 2600 /uL (1500-7000); Neutrophils Percent Auto 50.4 % (50-75); Platelet Count 260 X10^3/uL (150-400); Red Blood Cell Count 4.28 X10^6/uL (4.0-5.2); Red Cell Distribution Width 12.7 % (11.6-14.8); White Blood Cell Count 5.1 X10^3/uL (4.5-11.0)
== END ==
PROVIDERS: PCP Student in an Organized Health Care Education/Training Program; Referring Provider Student in an Organized Health Care Education/Training Program; Visit Provider Student in an Organized Health Care Education/Training Program
DX: N93.9 Abnormal uterine and vaginal bleeding, unspecified (principal)
CPT/HCPCS: 36415; 85025

== ENCOUNTER → 2023-02-17 13:16 | Outpatient (CLI) | payer OTHER, MEDICAID, SELFPAY ==
[2021-09-29 16:39] VITALS: BMI 21.2
--- NOTE | 2023-02-17 13:17 | DI.CT.S_ITS ---
PROCEDURE: CT SINUS SCREEN WO CON INDICATIONS: recurrent/chronic sinusitis TECHNIQUE: Noncontrast 3.0 mm axial images acquired from the frontal sinuses to the mid-sella, with coronal and sagittal reformats. For radiation dose reduction, the following was used: automated exposure control, adjustment of mA and/or kV according to patient size. COMPARISON: None. FINDINGS: Image quality: Excellent. Maxillary Sinuses: No bony remodeling or destruction. There is bilateral inferior maxillary sinus mucosal thickening, measuring up to 4.4 mm on the right and 7.2 mm on the left. There is no air-fluid level. Ethmoid Air Cells: No bony remodeling or destruction. Sinuses are clear. Sphenoid Sinuses: No bony remodeling or destruction. Sinuses are clear. Frontal Sinuses: No bony remodeling or destruction. Sinuses are clear. Ostiomeatal Complexes: Ostiomeatal complexes are patent. No Pia cells. Miscellaneous: Visualized intra-orbital contents are normal. No saul bullosa or paradoxical turbinate curvature. There is mild rightward nasal septal deviation. There is an osteophytic bar off the right side of the nasal septum which contributes to mild narrowing of the right nasal passage. IMPRESSION: 1. Chronic bilateral maxillary sinusitis. 2. The other paranasal sinuses are clear. 3. Mild rightward nasal septal deviation with an associated rightward osteophyte off of the nasal septum contributing to a mild degree of narrowing of the right nasal passage. Dictated by: Feliciano Max M.D. on 02/17/2023 at 20:12 Approved by: Feliciano Max M.D. on 02/17/2023 at 20:15
--- NOTE | 2023-02-17 13:17 | DI.US.S_ITS ---
PROCEDURE: US PELVIC COMPLETE INDICATIONS: Abnormal Uterine bleeding TECHNIQUE: Real-time scanning was performed of the pelvic organs, with image documentation. Additional endovaginal scanning was necessary due to incomplete visualization of the adnexal and endometrial structures by transabdominal scanning. COMPARISON: [facility], US, US PELVIC COMPLETE, 12/15/2022, 16:16. FINDINGS: Uterus: Uterus is retro and normal in size at 6.7 x 4.15.9 cm. The endometrium measures 8.3 mm combined thickness. Endometrium is heterogeneous with areas calcification. Ovaries: The right ovary measures 1.3 x 1.0 x 0.6 cm, with a calculated ovarian volume of 0.5 cc. The left ovary measures 2.8 x 1.1 x 1.0 cm, with a calculated ovarian volume of 1.5 cc. The ovaries have a normal sonographic appearance. Less than 12 follicles can be seen in each ovary. No adnexal masses are seen. Other: No pathologic free abdominal or pelvic fluid. No visualized pelvic congestion as on prior exam. IMPRESSION: Endometrium is heterogeneous with areas of calcification. Etiology is uncertain. Partially calcified retained products of conception could be considered if clinically appropriate. We strive to produce accurate, complete, and clear reports of imaging services. To assist us in improving patient care, this report was composed using standard report templates and voice recognition software. Therefore, it may contain abnormal punctuation, insertions and/or omissions. Occasional wrong-word or sound-alike substitutions may occur. Though we review the report and make efforts to correct it, we do recommend that the report be read carefully in proper context to recognize any text inaccuracies. Dictated by: Aviva Malone M.D. on 02/17/2023 at 22:28 Approved by: Aviva Malone M.D. on 02/17/2023 at 22:30
== END ==
PROVIDERS: PCP Student in an Organized Health Care Education/Training Program; Referring Provider Student in an Organized Health Care Education/Training Program; Visit Provider Student in an Organized Health Care Education/Training Program
DX: R10.32 Left lower quadrant pain (principal); N93.9 Abnormal uterine and vaginal bleeding, unspecified; J32.9 Chronic sinusitis, unspecified; J34.2 Deviated nasal septum
CPT/HCPCS: 70486; 76830; 76856; 93976

== ENCOUNTER → 2023-04-15 14:06 | Outpatient (CLI) | payer OTHER, MEDICAID, SELFPAY ==
[2021-09-29 16:39] VITALS: BMI 21.2
--- NOTE | 2023-04-15 14:07 | DI.US.S_ITS ---
PROCEDURE: US PELVIC COMPLETE INDICATIONS: DUB TECHNIQUE: Real-time scanning was performed of the pelvic organs, with image documentation. Additional endovaginal scanning was necessary due to incomplete visualization of the adnexal and endometrial structures by transabdominal scanning. COMPARISON: [facility], US, US PELVIC COMPLETE, 02/17/2023, 13:33. FINDINGS: Uterus: Uterus is retroverted and normal in size at 6.4 x 3.9 x 5.8 cm. The myometrium is homogeneous. The endometrium measures 4 mm combined thickness. Calcifications are noted at the uterine fundus. No suspicious mass lesion. Shadowing around the endometrium raises the suspicion for adenomyosis. Ovaries: The right ovary measures 1.0 x 2.4 x 1.0 cm, with a calculated ovarian volume of 1.2 cc. The left ovary measures 3.4 x 1.0 x 1.3 cm, with a calculated ovarian volume of 2.5 cc. The ovaries have a normal sonographic appearance. Less than 12 follicles can be seen in each ovary. No adnexal masses are seen. Other: No pathologic free abdominal or pelvic fluid. IMPRESSION: 1. Endometrial calcifications which are nonspecific finding. No associated polyp is visualized. 2. Shadowing surrounding the endometrium raises the suspicion for adenomyosis. If further characterization is warranted, gynecologic protocol MRI could be used. e strive to produce accurate, complete, and clear reports of imaging services. To assist us in improving patient care, this report was composed using standard report templates and voice recognition software. Therefore, it may contain abnormal punctuation, insertions and/or omissions. Occasional wrong-word or sound-alike substitutions may occur. Though we review the report and make efforts to correct it, we do recommend that the report be read carefully in proper context to recognize any text inaccuracies. Dictated by: Kaitlynn Heredia M.D. on 04/15/2023 at 16:30 Approved by: Kaitlynn Heredia M.D. on 04/15/2023 at 16:35
== END ==
LOC: US 14:07
PROVIDERS: PCP Student in an Organized Health Care Education/Training Program; Referring Provider Student in an Organized Health Care Education/Training Program; Visit Provider Student in an Organized Health Care Education/Training Program
DX: N93.9 Abnormal uterine and vaginal bleeding, unspecified (principal)
CPT/HCPCS: 76830; 76856; 93976

== ENCOUNTER → 2023-04-24 08:12 | Outpatient (CLI) | payer OTHER, MEDICAID, SELFPAY ==
[2021-09-29 16:39] VITALS: BMI 21.2
--- NOTE | 2023-04-24 08:13 | DI.MRI.S_ITS ---
PROCEDURE: MR PELVIS WO/W CON INDICATIONS: Adenomyosis of the uterus TECHNIQUE: Coronal HASTE, sagittal breath-hold T2 FSE; axial T1 FSE with and without fat saturation through the pelvis. Optional long- and short-axis uterine nonbreath-hold T2 FSE through the uterus. Sagittal or axial dynamic VIBE during administration of contrast. Post-contrast axial or coronal VIBE/2-D FLASH with fat saturation from the iliac crests to the symphysis. Optional diffusion weighted imaging and ADC may be performed. COMPARISON: [facility], CT, CT ABDOMEN PELVIS W CON, 07/29/2022, 15:38. [facility], US, US PELVIC COMPLETE, 02/17/2023, 13:33. FINDINGS: Image quality: Excellent. Uterus: Uterus is normal in size. Endometrium is normal in thickness. Junctional zone is normal in thickness at 12 mm or less. 5 mm intramural fibroid at the fundus (series 3, image 15). Adnexa: Both ovaries are normal in size, without suspicious cystic or solid lesions. Urinary system: Bladder wall is normal in thickness. Distal ureters are non distended. Urethra appears normal in morphology. Nodes and vessels: No pelvic or inguinal adenopathy by size criteria. Iliac vessels are normal in size. Bowel and peritoneum: No pathologic free pelvic fluid. Inferior colon and small bowel loops are normal in caliber. Soft tissues: No inguinal hernias. No findings of pelvic floor incompetence in the absence of provocation. Bones: Marrow demonstrates normal overall signal. IMPRESSION: No MRI evidence of adenomyosis. Enhancing 5 mm intramural fibroid at the fundus. Dictated by: Henry Lawrence M.D. on 04/26/2023 at 11:33 Approved by: Henry Lawrence M.D. on 04/26/2023 at 11:37
== END ==
PROVIDERS: PCP Student in an Organized Health Care Education/Training Program; Referring Provider Student in an Organized Health Care Education/Training Program; Visit Provider Student in an Organized Health Care Education/Training Program
DX: N80.03 Adenomyosis of the uterus (principal); D25.1 Intramural leiomyoma of uterus
CPT/HCPCS: 72197; A9579

== ENCOUNTER 2024-04-15 21:39 | Emergency (ER) | payer OTHER, SELFPAY ==
[2023-10-25 09:21] VITALS: BMI 21.2
[2024-04-15] VITALS (9 sets, daily range): BP systolic 109–125; BP diastolic 65–73; PULSE 65–77; RESP 16; TEMP 36.6–37.1; O2SAT 97–100; BMI 22.6
--- NOTE | 2024-04-15 21:53 | ED.GENADULT ---
HPI - General Adult General Chief complaint: Urogenital-Female Stated complaint: upper lft quad px Time Seen by Provider: 04/15/24 21:43 Source: patient Mode of arrival: Ambulatory History of Present Illness HPI narrative: 33-year-old female complains of mznp-yusrkbh-hjvu-right lower abdominal discomfort today, some discomfort left upper quadrant as well. Yesterday she had transient complaint of pain below the left shoulder blade that seemed to get better movement. No recent cough, shortness of breath, fevers, chills. No history of kidney stones. No history of urinary tract infections recent. No frequency of urination or painful urination. No new activities, has active toddlers at home, no trauma or change in activity routine recalled. No skin changes or rashes. Pain sometimes worse with movement, generally better with less movement or holding still. Not particularly worse supine versus upright position. Not necessarily worse with deep breathing. Normal bowel movements without black or red color Related Data Previous Rx's Medication Instructions Recorded pantoprazole 40 mg tablet,delayed 40 mg PO DAILY #30 tabs 11/18/22 release fluconazole 150 mg tablet 150 mg PO ONCE #1 tab 08/09/23 bupropion HCl 300 mg 24 hr tablet, 300 mg PO QAM #30 tabs 10/25/23 extended release (Wellbutrin XL) norethindrone 0.5 mg-ethinyl 1 tab PO DAILY #84 tabs 10/25/23 estradiol 35 mcg tablet (Jaquelin (28)) bupropion HCl 150 mg 24 hr tablet, 150 mg PO QAM #30 tabs 01/10/24 extended release (Wellbutrin XL) buspirone 5 mg tablet 5 mg PO BID #60 tabs 01/10/24 lorazepam 0.5 mg tablet 0.5 mg PO DAILY PRN anxiety #10 01/10/24 tabs triamcinolone acetonide 0.025 % 1 applic topical DAILY #15 grams 02/14/24 topical cream Allergies Allergy/AdvReac Type Severity Reaction Status Date / Time Penicillins [PENICILLINS] Allergy Severe Anaphylaxis Verified 02/14/24 09:03 : Swelling of Lip/Tongue/Throat vancomycin Allergy Intermediate Flushing Verified 02/14/24 09:03 Patient History Medical History (Updated 04/15/24 @ 23:45 by Devon Thompson MD) Spontaneous vaginal delivery Yeast infection of the vagina Anxiety Ankle fracture, right Ankle fracture, left Infection of stomach Surgical History H/O wisdom tooth extraction History of tonsillectomy and adenoidectomy Family History Mother Liver disease Father No known health problems Family estrangement Grandfather Diabetes mellitus Grandmother Myocardial infarct Grandfather Family estrangement Grandmother Brain aneurysm Lung cancer Stroke Social History marital status: number of children: 1 household members: spouse and children lives independently: Yes caregiver/support person: No housing: house pets and animals: No education level: vocational occupational status: employed current occupational exposures/hazards: Yes 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 pawan needs: No travel history: over 6 months ago seatbelt use: always water heater temp set < 120 deg: No (Will have check and adjust if needed) working smoke detector in home: Yes fire extinguisher in home: Yes carbon monox detector in home: Yes firearms in home: No do you feel safe at home: Yes Smoking Status: Never smoker second hand exposure: No alcohol intake: former substance use type: does not use during the past year weight has: decreased > 10 lbs well-balanced diet: daily or most days daily servings fruits/ve-4 caffeine: Yes Type(s) of exercise: walking Smoking Status: Never smoker alcohol intake frequency: a few times a month Exam Narrative Exam Narrative: GENERAL: Well-developed patient, in mild distress. HEAD: Atraumatic. Normocephalic. EYES: Pupils equal round and reactive. Extraocular motions intact. No scleral icterus. No injection or drainage. ENT: Nose without bleeding, purulent drainage. Throat without erythema, tonsillar hypertrophy or exudate. Airway patent. NECK: Trachea midline. Non tender CARDIOVASCULAR: Regular rate and rhythm without murmurs, gallops, or rubs. RESPIRATORY: Clear to auscultation. Breath sounds equal bilaterally. No wheezes, rales, or rhonchi. GASTROINTESTINAL: Abdomen with some tenderness right lower quadrant and left lower quadrant, no guarding. Not particularly tender left upper quadrant, no right upper quadrant, nor central umbilical region. No obvious ventral hernias. Bowel tones unremarkable, no rushes or tinkles, not hypoactive or hyperactive EXTREMITIES: No edema or joint tenderness. BACK: Nontender without deformity or crepitance. No flank tenderness. NEURO: AOx3. Motor functions grossly nonfocal SKIN: No rash or erythema of visible areas Initial Vital Signs Initial Vital Signs: Vital Signs Temperature 97.9 F 04/15/24 21:48 Pulse Rate 65 04/15/24 21:48 Respiratory Rate 16 04/15/24 21:48 Blood Pressure 125/72 04/15/24 21:48 Pulse Oximetry 100 04/15/24 21:48 Oxygen Delivery Method Room Air 04/15/24 21:48 Course Orders Ordered: ED Orders 04/15/24 21:58 Complete Blood Count AUTO DIFF Stat Comprehensive Metabolic Panel Stat Lipase Stat 04/15/24 22:13 CT abdomen pelvis w con Stat 04/15/24 22:28 XR chest 1V Stat Vital Signs Vital signs: Vital Signs - 8 hr 04/15/24 21:48 04/15/24 21:50 04/15/24 22:00 Temperature 97.9 F Pulse Rate 65 69 71 Respiratory Rate 16 Blood Pressure 125/72 Pulse Oximetry 100 100 99 Oxygen Delivery Method Room Air Room Air Room Air 04/15/24 22:00 04/15/24 22:30 04/15/24 22:32 Temperature Pulse Rate 66 67 Respiratory Rate Blood Pressure 111/65 Pulse Oximetry 99 99 Oxygen Delivery Method Room Air Room Air 04/15/24 22:32 04/15/24 23:00 04/15/24 23:30 Temperature Pulse Rate 68 77 Respiratory Rate Blood Pressure 109/67 Pulse Oximetry 97 98 Oxygen Delivery Method Room Air 04/15/24 23:49 04/15/24 23:49 04/15/24 23:56 Temperature 98.7 F Pulse Rate 71 Respiratory Rate 16 Blood Pressure 110/73 Pulse Oximetry 99 Oxygen Delivery Method Medical Decision Making Lab Data Lab results reviewed: Yes I reviewed the patient's lab results. Lab results narrative: White blood cell count 6900, hemoglobin 13.3, platelets adequate. Basic metabolic panel unremarkable. Liver functions and lipase normal. Urine dip negative. Urine hCG negative. 04/15/24 21:58 04/15/24 21:58 Labs: Lab Results 01/25/25 Range/Units 21:58 WBC 6.9 (4.5-11.0) X10^3/uL RBC 4.78 (4.0-5.2) X10^6/uL Hgb 13.3 (12.0-16.0) g/dL Hct 38.9 (36-46) % MCV 81.4 (80-100) fL MCH 27.9 (26-34) PG MCHC 34.3 (30-36) % RDW 12.5 (11.6-14.8) % Plt Count 254 (150-400) X10^3/uL Neut % (Auto) 52.6 (50-75) % Lymph % (Auto) 38.4 (25-40) % [place] % (Auto) 6.7 (3-14) % Eos % (Auto) 1.7 L (2-4) % Baso % (Auto) 0.6 (0-2) % Neut # (Auto) 3600 (1406-1564) /uL Lymph # (Auto) 2600 (0320-9585) /uL [place] # (Auto) 500 (0-900) /uL Eos # (Auto) 100 (0-450) /uL Baso # (Auto) 0 (0-100) /uL Sodium 138 (137-145) mmol/L Potassium 3.4 (3.4-5.1) mmol/L Chloride 101 (98-107) mmol/L Carbon Dioxide 28 (22-32) mmol/L BUN 15 (7-17) mg/dL Creatinine 0.83 (0.52-1.04) mg/dL Estimated GFR > 60 (>60) mL/min BUN/Creatinine Ratio 18.1 (6-22) Glucose 86 (70-100) mg/dL Calcium 9.4 (8.4-10.2) mg/dL Total Bilirubin 0.6 (0.2-1.3) mg/dL AST 25 (14-36) IU/L ALT 20 (<35) IU/L Alkaline Phosphatase 50 (38-126) U/L Total Protein 7.6 (6.3-8.2) g/dL Albumin 4.8 (3.5-5.0) g/dL Globulin 2.8 (1.7-4.1) g/dL Albumin/Globulin Ratio 1.7 (1.0-2.8) Lipase 109 (23-300) U/L Point of Care Testing Test Results Negative Urine Dip Bedside Urine Glucose Negative Bedside Urine Bilirubin - Negative Bedside Urine Ketone - Negative Urine Specific [place] 1.015 Bedside Urine Occult Blood - Negative Bedside Urine pH 7.0 Bedside Urine Protein - Negative Bedside Urine Urobilinogen - Negative Bedside Urine Nitrite - Negative Bedside Urine Leukocytes - Negative Esterase Point of care testing: Point of Care Testing Test Results Negative Urine Dip Bedside Urine Glucose Negative Bedside Urine Bilirubin - Negative Bedside Urine Ketone - Negative Urine Specific [place] 1.015 Bedside Urine Occult Blood - Negative Bedside Urine pH 7.0 Bedside Urine Protein - Negative Bedside Urine Urobilinogen - Negative Bedside Urine Nitrite - Negative Bedside Urine Leukocytes - Negative Esterase Imaging Data Chest x-ray: Radiologist's Impression: [address] [address] XRay Report Signed Patient: Aisha Lopez MR#: [id number] : 1990 Acct:[id number] Age/Sex: 33 / F Date of Service: 04/15/24 Loc: ED Accession Number: [id number] Procedure: XR chest 1V Ordering Provider: Devon Thompson MD PROCEDURE: XR CHEST 1V INDICATIONS: left scauplar pain yesterday TECHNIQUE: One view of the chest was acquired. COMPARISON: None. FINDINGS: Surgical changes and devices: None. Lungs and pleura: No dense airspace disease or pleural effusions. Mediastinum: Normal heart size Bones and chest wall: No acute radiographic osseous findings IMPRESSION: Single view radiograph without acute abnormality. Dictated by: Luis Felipe Oakley M.D. on 04/15/2024 at 23:00 Approved by: Luis Felipe Oakley M.D. on 04/15/2024 at 23:00 CT scan - abdomen/pelvis: Radiologist's Impression: Close Chest X-Ray (Signed) Luis Felipe Oakley - 04/15/24 Abdomen/Pelvis CT (Signed) Luis Felipe Oakley - 04/15/24 Launch?Image [address] [address] [address] Scan Report Signed Patient: Aisha Lopez MR#: [id number] : 1990 Acct:[id number] Age/Sex: 33 / F Date of Service: 04/15/24 Loc: ED Accession Number: [id number] Procedure: CT abdomen pelvis w con Ordering Provider: Devon Thompson MD PROCEDURE: CT ABDOMEN PELVIS W CON INDICATIONS: LUQ pain TECHNIQUE: After the administration of intravenous contrast, axial sections acquired from the lung bases to the pubic symphysis. Coronal and sagittal reformats were performed. For radiation dose reduction, the following was used: automated exposure control, adjustment of mA and/or kV according to patient size. COMPARISON: [facility], CT, CT ABDOMEN PELVIS W CON, 07/29/2022, 15:38. FINDINGS: Image quality: Diagnostic Lower chest: Unremarkable lung bases Mild wall thickening at the gastroesophageal junction. Liver: 9 mm hypervascular lesion in the periphery of segment 5 (2/48) Gallbladder and biliary system: Unremarkable, nondilated Pancreas: No ductal dilation Spleen: Borderline enlarged at 13.5 cm Adrenals: No discrete nodules Kidneys: No solid mass. No hydronephrosis. Vessels and lymph nodes: The main portal vein appears patent. No abdominal aortic aneurysm. No pathologic lymphadenopathy by size criteria. Bowel and peritoneum: No evidence of small bowel obstruction or pathologic ascites. Fecal loading is crpw-ni-qknyvyzm. The appendix appears nondilated. Body wall: Unremarkable Pelvis: Prominent pelvic veins are seen. IUD is in place Bones: Mild gael sacroiliac sclerotic changes. IMPRESSION: Mild wall thickening at the gastroesophageal junction may represent esophagitis. There is also hryk-yw-pnbrznxd fecal loading. No small bowel obstruction. Borderline splenomegaly. Prominent pelvic veins, sometimes seen in pelvic congestion syndrome. 9 mm hypervascular lesion in the periphery of hepatic segment 5, usually a benign focal nodular hyperplasia or hemangioma assuming patient does not have a malignancy history. This could be confirmed on liver MRI if clinically needed. Other findings above. Dictated by: Luis Felipe Oakley M.D. on 04/15/2024 at 23:00 Approved by: Luis Felipe Oakley M.D. on 04/15/2024 at 23:05 [facility] Narrative Medical decision making narrative: 33-year-old female with left upper quadrant and bilateral lower quadrant discomfort, 2 days ago had brief episode left scapula region area discomfort that resolved without specific treatment. Afebrile, sirs screen negative. Chest x-ray obtained was unremarkable. Labs sent, hCG negative, no leukocytosis, unremarkable studies. CT abdomen and pelvis imaging requested CT abdomen and pelvis showed esophagitis like changes, liver lesion that might be hemangioma, pelvic congestion like changes, moderate fecal loading without obstruction. Borderline splenomegaly. See radiology report. Unclear unifying diagnosis for her symptoms. No recent sore throat, we did discuss mononucleosis in setting of borderline splenomegaly, declined testing, has no constitutional sore throat or upper respiratory symptoms. We discussed additional imaging such as pelvic ultrasound, declined for now. Trial of MiraLax, she would like to try this and see how her symptoms evolve. Discharged home, return precautions discussed. Further follow up of incidental CT findings as an outpatient for now. Discharge Plan Departure Patient Disposition: Home Clinical Impression: Abdominal pain Activity Restrictions/Additional Instructions: Abdominal pain of unclear etiology. No fever on triage. Bilateral lower abdominal discomfort, also left upper quadrant. Reported history 2 days ago of left scapular area discomfort that was transient and improved without specific treatment. Unclear unifying diagnosis while these different complaints. Screening labs unremarkable, test and urinalysis dip study negative. Chest x-ray unremarkable. CT scanning abdomen and pelvis showed presence of moderate fecal material, it is possible that hard colonic stool could be causing migratory bilateral abdominal discomfort, perhaps it is prudent to try ptss-ttw-bjtkcpw laxative such as MiraLax to see if this prevents future abdominal discomfort. Incidentally noted on CT scanning abdomen was a liver lesion, possible hemangioma versus other etiology, further workup as an outpatient advised. Incidentally noted on CT scanning abdomen was esophageal thickening, possible esophagitis, consider urth-oon-tzyejtc antacid such as omeprazole or Pepcid if not already using this, sometimes thickening needs to be further investigated with upper endoscopy, sometimes any suspicious lesions might be biopsied at that time for example to come make sure there is no cancerous changes accounting for the thickening. Unclear if this would be related to any of your other symptoms tonight. We discussed other advanced imaging such as CT scanning of the chest, hold for now. We discussed other advanced imaging such as pelvic ultrasound study, declined for now. Recheck symptoms after course of MiraLax with your regular provider if symptoms persist Wednesday. Follow up for the other issues mentioned above with your regular provider. Return earlier to this/nearest emergency department for any change worsening symptoms or any concerns prior Prescriptions: No Action pantoprazole 40 mg tablet,delayed release (DR/EC) 40 mg PO DAILY Qty: 30 1RF triamcinolone acetonide 0.025 % cream 1 applic topical DAILY Qty: 15 3RF fluconazole 150 mg tablet 150 mg PO ONCE Qty: 1 0RF Rx Instructions: as a single dose bupropion HCl [Wellbutrin XL] 300 mg tablet extended release 24 hr 300 mg PO QAM Qty: 30 3RF Jaquelin (28) 0.5-35 mg-mcg tablet 1 tab PO DAILY Qty: 84 2RF buspirone 5 mg tablet 5 mg PO BID Qty: 60 3RF lorazepam 0.5 mg tablet 0.5 mg PO DAILY PRN (Reason: anxiety) Qty: 10 0RF bupropion HCl [Wellbutrin XL] 150 mg tablet extended release 24 hr 150 mg PO QAM Qty: 30 3RF Referrals: Carmela Kincaid MD [Primary Care Provider] - Stand Alone Forms: Patient Portal/API/Survey
--- NOTE | 2024-04-15 22:13 | DI.CT.S_ITS ---
PROCEDURE: CT ABDOMEN PELVIS W CON INDICATIONS: LUQ pain TECHNIQUE: After the administration of intravenous contrast, axial sections acquired from the lung bases to the pubic symphysis. Coronal and sagittal reformats were performed. For radiation dose reduction, the following was used: automated exposure control, adjustment of mA and/or kV according to patient size. COMPARISON: [facility], CT, CT ABDOMEN PELVIS W CON, 07/29/2022, 15:38. FINDINGS: Image quality: Diagnostic Lower chest: Unremarkable lung bases Mild wall thickening at the gastroesophageal junction. Liver: 9 mm hypervascular lesion in the periphery of segment 5 (2/48) Gallbladder and biliary system: Unremarkable, nondilated Pancreas: No ductal dilation Spleen: Borderline enlarged at 13.5 cm Adrenals: No discrete nodules Kidneys: No solid mass. No hydronephrosis. Vessels and lymph nodes: The main portal vein appears patent. No abdominal aortic aneurysm. No pathologic lymphadenopathy by size criteria. Bowel and peritoneum: No evidence of small bowel obstruction or pathologic ascites. Fecal loading is whjc-sh-ijizettt. The appendix appears nondilated. Body wall: Unremarkable Pelvis: Prominent pelvic veins are seen. IUD is in place Bones: Mild gael sacroiliac sclerotic changes. IMPRESSION: Mild wall thickening at the gastroesophageal junction may represent esophagitis. There is also kvoh-kc-xpfsbbse fecal loading. No small bowel obstruction. Borderline splenomegaly. Prominent pelvic veins, sometimes seen in pelvic congestion syndrome. 9 mm hypervascular lesion in the periphery of hepatic segment 5, usually a benign focal nodular hyperplasia or hemangioma assuming patient does not have a malignancy history. This could be confirmed on liver MRI if clinically needed. Other findings above. Dictated by: Luis Felipe Oakley M.D. on 04/15/2024 at 23:00 Approved by: Luis Felipe Oakley M.D. on 04/15/2024 at 23:05
[2024-04-15 22:18] LABS: Add Manual Diff / Slide Review NO; Basophils Absolute Auto 0 /uL (0-100); Basophils Percent Auto 0.6 % (0-2); Eosinophils Absolute Auto 100 /uL (0-450); Eosinophils Percent Auto 1.7 % (2-4); Hematocrit 38.9 % (36-46); Hemoglobin 13.3 g/dL (12.0-16.0); Lymphocytes Absolute Auto 2600 /uL (1100-4500); Lymphocytes Percent Auto 38.4 % (25-40); Mean Corpuscular HGB Conc 34.3 % (30-36); Mean Corpuscular Hemoglobin 27.9 PG (26-34); Mean Corpuscular Volume 81.4 fL (80-100); Monocytes Absolute Auto 500 /uL (0-900); Monocytes Percent Auto 6.7 % (3-14); Neutrophils Absolute Auto 3600 /uL (1500-7000); Neutrophils Percent Auto 52.6 % (50-75); Platelet Count 254 X10^3/uL (150-400); Red Blood Cell Count 4.78 X10^6/uL (4.0-5.2); Red Cell Distribution Width 12.5 % (11.6-14.8); White Blood Cell Count 6.9 X10^3/uL (4.5-11.0)
--- NOTE | 2024-04-15 22:28 | DI.RAD.S_ITS ---
PROCEDURE: XR CHEST 1V INDICATIONS: left scauplar pain yesterday TECHNIQUE: One view of the chest was acquired. COMPARISON: None. FINDINGS: Surgical changes and devices: None. Lungs and pleura: No dense airspace disease or pleural effusions. Mediastinum: Normal heart size Bones and chest wall: No acute radiographic osseous findings IMPRESSION: Single view radiograph without acute abnormality. Dictated by: Luis Felipe Oakley M.D. on 04/15/2024 at 23:00 Approved by: Luis Felipe Oakley M.D. on 04/15/2024 at 23:00
--- NOTE | 2024-04-15 22:35 | PC.NURSE ---
Pt to imaging via wheel chair with cath lab radiology technician
[2024-04-15 22:38] LABS: Alanine Aminotransferase 20 IU/L (<35); Albumin 4.8 g/dL (3.5-5.0); Albumin Globulin Ratio 1.7 (1.0-2.8); Alkaline Phosphatase 50 U/L (38-126); Aspartate Aminotransferase 25 IU/L (14-36); BUN Creatinine Ratio 18.1 (6-22); Bilirubin Total 0.6 mg/dL (0.2-1.3); Blood Urea Nitrogen 15 mg/dL (7-17); Calcium 9.4 mg/dL (8.4-10.2); Carbon Dioxide 28 mmol/L (22-32); Chloride 101 mmol/L (98-107); Estimated Glomerular Filt Rate > 60 mL/min (>60); Globulin 2.8 g/dL (1.7-4.1); Glucose 86 mg/dL (70-100); HEMOLYSIS < 15 (0-50); Lipase 109 U/L (23-300); Potassium 3.4 mmol/L (3.4-5.1); Sodium 138 mmol/L (137-145); Total Protein 7.6 g/dL (6.3-8.2)
== END 2024-04-15 23:57 | disposition home or self-care (01) ==
PROVIDERS: Emergency Provider Emergency Medicine; PCP Student in an Organized Health Care Education/Training Program
DX: R10.32 Left lower quadrant pain (principal); R10.31 Right lower quadrant pain; R10.12 Left upper quadrant pain; M25.512 Pain in left shoulder
CPT/HCPCS: 36415; 71045; 74177; 80053; 81003; 81025; 83690; 85025; 99283; 99284; Q9967

== ENCOUNTER → 2024-04-28 19:02 | Outpatient (CLI) | payer OTHER, SELFPAY ==
[2023-10-25 09:21] VITALS: BMI 21.2
--- NOTE | 2024-04-28 19:05 | DI.MRI.S_ITS ---
PROCEDURE: MR ABDOMEN LIVER PROTOCOL INDICATIONS: Liver Lesion found on CT scan from 04.15.24 TECHNIQUE: Coronal HASTE, axial 2D FLASH in- and [id number]; axial breath-hold T2 FSE. Dynamic axial VIBE during the administration of contrast; post-contrast coronal VIBE or 2D FLASH with fat saturation from the hepatic dome to the iliac crests. Optional diffusion weighted imaging and ADC may be performed. COMPARISON: [facility], CT, CT ABDOMEN PELVIS W CON, 07/29/2022, 15:38. FINDINGS: Image quality: Diagnostic. Lung bases: Unremarkable. Liver: Normal size and signal. Smooth margin. Three small arterially enhancing lesions seen on the prior CT are less well seen on the current exam due to motion artifact on postcontrast imaging. The largest lesion measures 1.9 cm, located just anterior to the main portal vein in segment 5/8, demonstrates indistinct, homogeneous, arterial enhancement and increased signal on hepatobiliary phase imaging. A subcentimeter lesion and dorsal left hepatic lobe, seen on prior CT, image 05/08, and the described lesion in the anterior segment five, / possibly demonstrate arterial enhancement but no washout on delayed phases. Gallbladder: No stones or wall thickening. Biliary ducts: No biliary dilation. Pancreas: Normal size and morphology without visible ductal dilatation or inflammation. Spleen: Splenomegaly. 14.8 cm in length. Adrenal Glands: No adrenal nodules. Kidneys and Ureters: No hydronephrosis. No solid mass. No complex renal cystic lesion which requires follow up. Stomach and Bowel: Stomach and visible bowel loops are within normal limits. Peritoneum: No abnormal intraperitoneal fluid. No free air. Ventral Wall: No hernia. Abdominal Nodes: No retroperitoneal or mesenteric adenopathy by size criteria. Vessels: The abdominal aorta, IVC, and portal vein are of normal caliber. Mildly prominent left gonadal vein. Bones: No aggressive osseous abnormality. IMPRESSION: Small arterially enhancing liver lesions, the largest with characteristics consistent with benign focal nodular hyperplasia. Subcentimeter lesions are not well characterized due to technical artifacts but most likely small flash fill hemangiomas. No suspicious feature. No further follow-up needed. Mild splenomegaly, potentially physiologic for the patient or reactive. Dictated by: Daxa Perez M.D. on 05/01/2024 at 8:50 Approved by: Daxa Perez M.D. on 05/01/2024 at 9:08
== END ==
PROVIDERS: PCP Student in an Organized Health Care Education/Training Program; Referring Provider Student in an Organized Health Care Education/Training Program; Visit Provider Student in an Organized Health Care Education/Training Program
DX: K76.9 Liver disease, unspecified (principal); R16.1 Splenomegaly, not elsewhere classified
CPT/HCPCS: 74183; A9579

== ENCOUNTER 2024-06-15 06:29 | Day surgery (SDC) | payer OTHER, SELFPAY ==
[2023-10-25 09:21] VITALS: BMI 21.2
--- NOTE | 2024-06-15 | PATH_ITS ---
[facility] Accession Number: [id number] No. of containers..01 Tissue . 01 Material submitted: . gastrointestinal site - ANTRUM . 01 Diagnosis: ANTRUM: Gastric mucosa with mild chronic inflammation. No Helicobacter organisms identified. No intestinal metaplasia, dysplasia, or malignancy identified. STO 06/21/2024 1500 Local . 01 Electronically signed: . Anant Paula MD, Pathologist NPI- [id number] . 01 Gross description: . ANTRUM: Received in formalin are 2 fragment(s) of collins, soft tissue measuring 0.1 x 0.1 x 0.1 cm to 0.3 x 0.2 x 0.2 cm submitted entirely in 1 cassette(s) /REINALDO 06/21/2024 1500 Local . 01 Microscopic: . ANTRUM: An immunohistochemical stain was performed to evaluate for Helicobacter organisms and is negative. The control stains appropriately. * This test was developed and the performance characteristics were validated by [facility]. It has not been cleared or approved by the Food and Drug Administration. . 01 Pathologist provided ICD-10: K29.50 . 01 CPT . 980001, [id number] Specimen Comment: A courtesy copy of this report has been sent to [phone] Performed at: [address] [facility], [place], [place] [id number] MD Anant Paula MD Phone: [phone]
[2024-06-15 07:02] VITALS: BP 100/65; PULSE 55; RESP 16; TEMP 36.6; O2SAT 100
[2024-06-15] MEDS: LACTATED RINGERS 1,000 ML 42 ML IV (07:13)
--- NOTE | 2024-06-15 07:37 | PM.PREOP ---
Pre-operative Note COVID-19 COVID-19 status: Not tested Interval Note History & Physical reviewed/Exam performed by Physician: Yes Changes to H&P: No ASA Class (for procedural sedation): II
[2024-06-15 07:51] VITALS: BP 91/56; PULSE 61; RESP 15; TEMP 36.4; O2SAT 96
--- NOTE | 2024-06-15 07:54 | PM.OP.EGD ---
Operative Date/Time/Diagnoses Date of procedure: 06/15/24 Time of procedure: 07:54 Pre-op diagnosis: Abnormal imaging of the GI tract Post-op diagnosis: same Procedure & Clinicians Study performed: Esophagogastroduodenoscopy Same procedure as scheduled: Yes Surgeon: Josh Lo Procedure Notes Procedure in detail: Surgeon: Josh Lo MD Anesthesia: Tobias Solomon D.O. A timeout was performed. A bite blocked was placed. The patient was positioned in the left lateral decubitus position. Anesthesia was administered. The endoscope was inserted through the bite block and passed through the esophagus and stomach and into the duodenum. The duodenal mucosa appeared normal. The scope was withdrawn into the duodenal bulb and no abnormalities were seen. The scope was withdrawn into the stomach. Mild antritis was noted and random biopsies were taken from the antrum with cold forceps. The rest of the stomach was normal. The scope was retroflexed and no hiatal hernia was noted. The scope was withdrawn into the esophagus and no abnormalities were seen. The scope was withdrawn. The patient was awakened and brought to recovery. Sedation time: 3 minutes Findings: Mild antritis, normal esophagus Post-procedure Disposition: PACU
[2024-06-15 07:56] VITALS: BP 94/62; PULSE 60; RESP 19; O2SAT 97
[2024-06-15 08:01] VITALS: BP 89/59; PULSE 52; RESP 16; O2SAT 98
[2024-06-15 08:06] VITALS: BP 93/58; PULSE 52; RESP 13; TEMP 36.6; O2SAT 97
== END 2024-06-15 08:17 | disposition home or self-care (01) ==
PROVIDERS: PCP Student in an Organized Health Care Education/Training Program; Referring Provider Surgery; Visit Provider Surgery
PROC: 0DJ08ZZ Inspection of Upper Intestinal Tract, Via Natural or Artificial Opening Endoscopic (ICD-10-PCS; CPT 43239; principal; 2024-06-15 07:45)
DX: K29.50 Unspecified chronic gastritis without bleeding (principal)
CPT/HCPCS: 43239; J2704

== ENCOUNTER → 2024-07-12 18:18 | Outpatient (CLI) | payer OTHER, SELFPAY ==
[2023-10-25 09:21] VITALS: BMI 21.2
== END ==
PROVIDERS: PCP Student in an Organized Health Care Education/Training Program; Visit Provider Nurse Practitioner Family
DX: R30.0 Dysuria (principal); N89.8 Other specified noninflammatory disorders of vagina
CPT/HCPCS: 87086; 87210